=== PATIENT | female | born 1935 | race Caucasian/White ===

== ENCOUNTER 2023-12-08 13:50 | Inpatient (IN) | payer MEDICARE, SELFPAY ==
[2023-12-08] VITALS (10 sets, daily range): BP systolic 107–124; BP diastolic 60–87; PULSE 78–91; RESP 14–29; TEMP 36.5; O2SAT 90–100
--- NOTE | ~2023-12-08 | XR_ITS ---
Portable chest x-ray Comparison: 12/08/2023 Clinical History: Pneumonia Findings: NG tube is in satisfactory position. Small right pleural effusion is present. There is pro bable right basilar atelectasis. There is mild haziness left lung base. Cardiomediastinal silhouette is stable. Bones and soft tissues are unremarkable. Impression: Small right pleural effusion with probable bibasilar pulmonary edema/atelectasis, right worse than le ft. Correlate clinically for pneumonia. NG tube in place. Reviewed, dictated and finalized at location . ORMANCE TESTER Impression: Small right pleural effusion with probable bibasilar pulmonary edema/atelectasi s, right worse than left. Correlate clinically for pneumonia. NG tube in place.
--- NOTE | ~2023-12-08 | XR_ITS ---
EXAMINATION: XR UGI water soluble wo kub DATE: 12/12/2023 09:29 INDICATION: Perforated duodenal ulcer. TECHNIQUE: Water-soluble contrast was injected into the nasogastric tube. Fluoroscopy of the esophagu s, stomach, and proximal small bowel was performed. Fluoroscopy exposure time was 0.5 minutes. The to marissa number of images was 142. Total dose-area product was 1.387 Gy-cm^2. COMPARISON: CT abdomen and pelvis 12/09/2023 FINDINGS: The nasogastric tube tip is in the stomach. The stomach and duodenum are normal. There is n o extraluminal leakage of contrast. IMPRESSION: 1. No extraluminal leakage of contrast. Reviewed, dictated and finalized at location A. RAL INTERNIST
--- NOTE | ~2023-12-08 | XR_ITS ---
EXAMINATION: XR chest 1V portable DATE: 12/08/2023 20:52 INDICATION: Failure to thrive. TECHNIQUE: A single frontal view of the chest was obtained. COMPARISON: CT abdomen and pelvis 12/08/2023 FINDINGS: There is mild scarring at left lung apex. There are airspace opacities in right lower lung zone, consistent with pneumonia. There is mild atelectasis in left lower lobe. No pleural effusion or pneumothorax. Cardiomegaly is noted. There are old healed left rib fractures. IMPRESSION: 1. Airspace opacities in right lower lung zone, consistent with pneumonia. 2. Cardiomegaly. Reviewed, dictated and finalized at location E. ENT PUMPER
--- NOTE | ~2023-12-08 | CT_ITS ---
EXAMINATION: CT abdomen pelvis wo con DATE: 12/09/2023 14:44 INDICATION: Sudden abdominal pain. TECHNIQUE: Computed tomography (CT) of the abdomen and pelvis was performed without intravenous contr ast. Automated exposure control and iterative reconstruction technique were employed. The dose-length product was 405.10 mGy-cm. COMPARISON: CT abdomen and pelvis 12/08/2023., Ultrasound kidneys 12/09/2023 FINDINGS: The visualized portions of the lung bases demonstrate airspace opacities and centrilobular nodules and tree-in-bud opacities in right lower lobe and airspace opacities in right lower lobe, con sistent with pneumonia. There is mucous plugging in right lower lobe and right middle lobe and left l ower lobe. There is bronchiectasis in the inferior lungs. Calcified right lung nodules and calcified right hilar lymph nodes are consistent with old granulomatous disease. Cardiomegaly is noted. There a re coronary artery calcifications. No pericardial effusion. The central pulmonary arteries are enlarg ed, consistent with pulmonary arterial hypertension. Calcifications in the liver and spleen are consi stent with old granulomatous disease. The gallbladder is distended. The pancreas and right adrenal gl and are normal. There is thickening of left adrenal gland, likely benign. There are cysts in the kidn eys measuring up to 2.6 cm on the right. There are subcentimeter hemorrhagic cysts in left kidney. Th ere is calcified atherosclerosis of the aorta and many of the other arteries. There is acute hematoma in right iliacus muscle. There are scattered diverticula in the colon. There are no dilated loops of bowel. The appendix is not visualized. There is free intraperitoneal gas in the anterior abdomen. Th ere is a small volume of perihepatic ascites. There are no pathologically enlarged lymph nodes. IMPRESSION: 1. New free intraperitoneal gas, consistent with perforated viscus. I called this result to Mendel Thompson. 2. Small volume of ascites. 3. Acute hematoma in the right iliacus muscle. 4. Pneumonia involving right lower lobe and right middle lobe. 5. Gallbladder distention, which may be secondary to fasting. Reviewed, dictated and finalized at location E. OMS BROKERAGE AGENT IMPRESSION: 1. New free intraperitoneal gas, consistent with perforated viscus. I called th is result to Mendel Gonzalez. 2. Small volume of ascites. 3. Acute hematoma in the right iliacus muscle. 4. Pneumonia involving right lower lobe and right middle lobe. 5. Gallbladder distention, which may be secondary to fasting.
--- NOTE | ~2023-12-08 | CT_ITS ---
EXAMINATION: CT brain wo con DATE: 12/08/2023 21:00 INDICATION: Mental status change. TECHNIQUE: Computed tomography (CT) of the head was performed without intravenous contrast. The mA wa s adjusted according to patient size. Iterative reconstruction technique was employed. The dose-lengt h product was 983.67 mGy-cm. COMPARISON: None FINDINGS: There are scattered areas of low attenuation in the cerebral white matter, which is within normal limits for the patient's age. There is no intracranial hemorrhage, acute infarction, or abnor mal intracranial mass lesion. The ventricles are normal in size. There is mucosal thickening in the p aranasal sinuses. The orbits are normal. The mastoid air cells are normal. IMPRESSION: 1. Normal aging brain. Reviewed, dictated and finalized at location E. KEEPER IMPRESSION: 1. Normal aging brain.
--- NOTE | ~2023-12-08 | XR_ITS ---
EXAMINATION: XR abdomen gastric tube insert DATE: 12/09/2023 19:09 INDICATION: Nasogastric tube placement. TECHNIQUE: A semiupright view of the abdomen was obtained. COMPARISON: None. FINDINGS: The lower abdomen is excluded. The nasogastric tube tip is in the stomach with proximal lionel e port at the gastroesophageal junction. There is a surgical drain in the abdomen. There is a small r ight pleural effusion. There are old healed left rib fractures. IMPRESSION: 1. Nasogastric tube tip in the stomach with proximal side port at the gastroesophageal junction. 2. Small right pleural effusion. Reviewed, dictated and finalized at location E. ERSHIP MANAGER IMPRESSION: 1. Nasogastric tube tip in the stomach with proximal side port at the gastroeso phageal junction. 2. Small right pleural effusion.
--- NOTE | ~2023-12-08 | US_ITS ---
EXAMINATION: US renal BI DATE: 12/09/2023 14:44 INDICATION: Acute kidney injury. TECHNIQUE: Multiple ultrasound grayscale images of the kidneys were obtained. COMPARISON: CT abdomen pelvis 12/09/2023 FINDINGS: The right kidney measures 9.0 x 4.8 x 4.4 cm. The left kidney measures 9.1 x 4.2 x 3.7 cm. The kidney s demonstrate normal parenchymal echogenicity. There are cysts in the kidneys measuring up to 3.3 cm on the right. There is no hydronephrosis. The bladder is normal. IMPRESSION: 1. Normal kidney sizes. No hydronephrosis. Reviewed, dictated and finalized at location E. RMATION ASSURANCE ENGINEER
--- NOTE | ~2023-12-08 | CT_ITS ---
EXAMINATION: CT abdomen pelvis wo con DATE: 12/08/2023 21:00 INDICATION: Diarrhea. TECHNIQUE: Computed tomography (CT) of the abdomen and pelvis was performed without intravenous contr ast. Automated exposure control and iterative reconstruction technique were employed. The dose-length product was 347.97 mGy-cm. COMPARISON: None. FINDINGS: The visualized portions of the lung bases demonstrate centrilobular nodules and airspace op acities in right lower lobe, consistent with pneumonia. There is mild atelectasis bilaterally. No ple ural effusion. Cardiomegaly is noted. No pericardial effusion. There are coronary artery calcificatio ns. A calcification in the liver is consistent with old granulomatous disease. The gallbladder, splee n, pancreas, and adrenal glands are normal. There is cortical thinning of the kidneys. There is a 2.4 cm cyst in right kidney. There are masses in the kidneys measuring soft tissue attenuation measuring up to 10 mm on the left. There is no urolithiasis. There is diverticulosis of the colon without evid ence of diverticulitis. There are no dilated loops of bowel. The appendix is not visualized. There is calcified atherosclerosis of the aorta and many of the other arteries. There are no pathologically e nlarged lymph nodes. There is no free intraperitoneal fluid. There is moderate lumbar spondylosis. IMPRESSION: 1. Right lower lobe pneumonia. 2. Masses in the kidneys measuring up to 10 mm on the left, which may be hemorrhagic cysts or less li anna neoplasm(s). Abdomen MRI without and with contrast is recommended in 6 months. Reviewed, dictated and finalized at location E. ESSING MANAGER IMPRESSION: 1. Right lower lobe pneumonia. 2. Masses in the kidneys measuring up to 10 mm on the left, which may be hemorr hagic cysts or less likely neoplasm(s). Abdomen MRI without and with contrast i s recommended in 6 months.
--- NOTE | 2023-12-08 19:48 | ECG_ITS ---
Measurements Intervals [place] Rate: 68 P: [place]: 0 QRS: 7 QRSD: 87 T: -9 QT: 373 QTc: 398 Interpretive Statements ATRIAL FIBRILLATION ST DEVIATION AND MODERATE T-WAVE ABNORMALITY, CONSIDER LATERAL ISCHEMIA [-0.1+ mV T- WAVE IN I/aVL/V5/V6] ABNORMAL ECG NO PREVIOUS ECG AVAILABLE FOR COMPARISON Electronically Signed On 12-09-2023 7:13:58 SENIOR ELECTRICAL ENGINEER by Duane Coughlin M.D.
[2023-12-08 20:19] LABS: Basophils Absolute Auto 0.1 K/mm3 (0.0-0.1); Basophils Percent Auto 0.3 % (0.2-1.2); Hematocrit 50.4 % (37.0-47.0); Hemoglobin 15.8 g/dL (12.0-15.0); Immature Granulocyte Absolute 0.37 K/mm3 (0.00-0.031); Immature Granulocyte Percent A 1.5 % (0-0.5); Lymphocytes Absolute Auto 1.39 K/mm3 (0.9-3.2); Lymphocytes Percent Auto 5.6 % (18.3-44.2); Mean Corpuscular HGB Conc 31.3 g/dl (32-36); Mean Corpuscular Hemoglobin 31.1 pg (26-34); Mean Corpuscular Volume 99.2 fl (80-100); Mean Platelet Volume 12.5 fl (7.4-10.4); Monocytes Absolute Auto 1.3 K/mm3 (0.1-0.6); Monocytes Percent Auto 5.1 % (2.6-8.5); Neutrophils Absolute Auto 21.8 K/mm3 (1.3-6.7); Neutrophils Percent Auto 87.5 % (45.5-73.1); Platelet Count Result 129 k/mm3 (150-375); Red Blood Count 5.08 M/mm3 (4.2-5.4); White Blood Count 24.9 K/mm3 (4.5-10.0)
[2023-12-08 20:30] LABS: Alanine Aminotransferase 128 U/L (6-35); Albumin Level 3.9 g/dL (3.5-5.1); Alkaline Phosphatase 218 U/L (38-126); Anion Gap 13 mmol/L (8-16); Aspartate Amino Transferase 113 U/L (14-36); Bilirubin,Total 1.3 mg/dL (0.2-1.3); Blood Urea Nitrogen 44 mg/dL (7-17); Calcium 9.4 mg/dL (8.4-10.2); Carbon Dioxide 21 mmol/L (22-30); Chloride 97 mmol/L (98-107); Estimated Glomerular Filt Rate 28; Glucose 145 mg/dL (65-110); Potassium 4.9 mmol/L (3.4-5.0); Sodium 131 mmol/L (137-145)
[2023-12-08 20:38] LABS: NT Pro B Type Natriuretic Pept 5680 pg/mL (19.9-100)
[2023-12-08 21:25] LABS: Magnesium 2.5 mg/dL (1.6-2.3)
--- NOTE | 2023-12-08 21:27 | ED.GENADULT ---
HPI - General Adult General Chief complaint: Unspecified Stated complaint: unable to care for self Time Seen by Provider: 12/08/23 20:14 History of Present Illness HPI narrative: Patient 88-year-old female who presents emergency department with chief complaint of generalized weakness. Patient was recently hospitalized at [facility] for congestive heart failure exacerbation the patient was discharged home and since then has been having generalized weakness not able to get up off of the couch. The patient has developed some pressure ulcers in her left leg and in her gluteal area. The patient reports she has continued to have shortness of breath with ambulation. Related Data Home Medications Medication Instructions Recorded Confirmed aspirin 81 mg tablet,delayed mg 12/08/23 release atenolol 100 mg tablet mg 12/08/23 atorvastatin 80 mg tablet 80 mg PO DAILY 12/08/23 diltiazem HCl 240 mg capsule,24 240 mg PO DAILY 12/08/23 hr,extended release fluticasone fur. 100 mcg-umeclid inhalation 12/08/23 62.5 mcg-vilant 25 mcg inhalat.powder (Trelegy Ellipta) furosemide 40 mg tablet mg 12/08/23 magnesium oxide 400 mg (241.3 mg mg 12/08/23 magnesium) tablet metoprolol tartrate 50 mg tablet mg 12/08/23 potassium chloride 20 mEq meq PO 12/08/23 tablet,extended release prednisone 20 mg tablet mg 12/08/23 Allergies Allergy/AdvReac Type Severity Reaction Status Date / Time No Known Allergies Allergy Verified 12/08/23 21:12 Review of Systems Review of Systems: A 10 system review of systems was completed on the patient and is negative except for what is stated in the HPI. Nursing and ancillary documentation was reviewed. [facility] Social History Social History Second hand tobacco smoke exposure: No Smoking end date: 10/31/10 Alcohol intake: never Exam Narrative: GENERAL: Well-appearing, well-nourished, and in no acute distress. HEAD: Normocephalic, atraumatic. EYES: PERRLA and EOMI. ENT: Nares clear, no rhinorrhea or epistaxis. Mucous membranes moist. NECK: Supple. CHEST: Clear to auscultation. No respiratory distress. HEART: Regular rate and rhythm. No murmur heard. Normal peripheral pulses. ABDOMEN: Soft, nontender, nondistended, normal active bowel sounds. EXTREMITIES: Normal range of motion. No edema. SKIN: Warm, dry, no rash. Small areas of skin breakdown on the left posterior thigh and the right gluteal region NEURO: No focal deficits. Alert and oriented x3. PSYCH: Normal mood and affect. Course Vital Signs Vital signs: Vital Signs Temperature 36.5 C 12/08/23 14:37 Pulse Rate 85 12/08/23 14:37 Respiratory Rate 18 12/08/23 14:37 Blood Pressure 124/71 12/08/23 14:37 Pulse Oximetry 98 12/08/23 14:37 Oxygen Delivery Room Air 12/08/23 14:37 Temperature 36.5 C 12/08/23 14:37 Pulse Rate 85 12/08/23 14:37 Respiratory Rate 18 12/08/23 14:37 Blood Pressure 124/71 12/08/23 14:37 Pulse Oximetry 98 12/08/23 14:37 Oxygen Delivery Room Air 12/08/23 14:37 Medical Decision Making [facility] Narrative Medical decision making narrative: Differential diagnosis includes ACS, dehydration, and electrolyte abnormality, pneumonia, CHF exacerbation, UTI Laboratory studies were obtained on the patient which showed a white blood cell count of 24.9 electrolytes showed a sodium of 131 creatinine was 1.7 magnesium was 2.5 liver enzymes were slightly elevated troponin is 0.032 BNP is 5680 chest x-ray showed a right lower lobe infiltrate CT scan of the abdomen pelvis showed a right lower lobe infiltrate no acute findings in the abdomen. CT head showed no acute abnormality Blood cultures were obtained on the patient the patient started on Rocephin and Zithromax Vital Signs Vital Signs: Vital Signs Temperature 36.5 C 12/08/23 14:37 Pulse Rate 85 12/08/23 14:37 Respiratory Rate 18 02/0
[2023-12-08 21:34] LABS: Troponin I 0.032 ng/mL (0.000-0.034)
--- NOTE | 2023-12-08 21:46 | PM.IMHP ---
H&P: HPI History of Present Illness Date/Time: 12/08/23 21:46 Chief Complaint: GENERALIZED WEAKNESS Narrative: This is an 88-year-old female with past medical history significant for atrial fibrillation, congestive heart failure, chronic kidney disease. Patient presents to the emergency room due to generalized weakness patient is unable to give much meaningful history contributory to history of present illness. Had been admitted recently discharged from [facility]. Preliminary workup here was significant for chest x-ray showed pneumonia in the right lower lobe. Patient has been admitted for further evaluation management and treatment. EXAMINATION: XR chest 1V portable DATE: 12/08/2023 20:52 INDICATION: Failure to thrive. TECHNIQUE: A single frontal view of the chest was obtained. COMPARISON: CT abdomen and pelvis 12/08/2023 FINDINGS: There is mild scarring at left lung apex. There are airspace opacities in right lower lung zone, consistent with pneumonia. There is mild atelectasis in left lower lobe. No pleural effusion or pneumothorax. Cardiomegaly is noted. There are old healed left rib fractures. IMPRESSION: 1. Airspace opacities in right lower lung zone, consistent with pneumonia. 2. Cardiomegaly. EXAMINATION: CT brain wo con DATE: 12/08/2023 21:00 INDICATION: Mental status change. TECHNIQUE: Computed tomography (CT) of the head was performed without intravenous contrast. The mA was adjusted according to patient size. Iterative reconstruction technique was employed. The dose-length product was 983.67 mGy-cm. COMPARISON: None FINDINGS: There are scattered areas of low attenuation in the cerebral white matter, which is within normal limits for the patient's age.? There is no intracranial hemorrhage, acute infarction, or abnormal intracranial mass lesion. The ventricles are normal in size. There is mucosal thickening in the paranasal sinuses. The orbits are normal. The mastoid air cells are normal. IMPRESSION: 1. Normal aging brain. EXAMINATION: CT abdomen pelvis wo con DATE: 12/08/2023 21:00 INDICATION: Diarrhea. TECHNIQUE: Computed tomography (CT) of the abdomen and pelvis was performed without intravenous contrast. Automated exposure control and iterative reconstruction technique were employed. The dose-length product was 347.97 mGy-cm. COMPARISON: None. FINDINGS: The visualized portions of the lung bases demonstrate centrilobular nodules and airspace opacities in right lower lobe, consistent with pneumonia. There is mild atelectasis bilaterally. No pleural effusion. Cardiomegaly is noted. No pericardial effusion. There are coronary artery calcifications. A calcification in the liver is consistent with old granulomatous disease. The gallbladder, spleen, pancreas, and adrenal glands are normal. There is cortical thinning of the kidneys. There is a 2.4 cm cyst in right kidney. There are masses in the kidneys measuring soft tissue attenuation measuring up to 10 mm on the left. There is no urolithiasis. There is diverticulosis of the colon without evidence of diverticulitis. There are no dilated loops of bowel. The appendix is not visualized. There is calcified atherosclerosis of the aorta and many of the other arteries. There are no pathologically enlarged lymph nodes. There is no free intraperitoneal fluid. There is moderate lumbar spondylosis. IMPRESSION: 1. Right lower lobe pneumonia. 2. Masses in the kidneys measuring up to 10 mm on the left, which may be hemorrhagic cysts or less likely neoplasm(s). Abdomen MRI without and with contrast is recommended in 6 months. Review of Systems Review of Systems: Generalized weakness, wounds bilateral lower extremity [facility] Social History Social History Smoking status: Former smoker Second hand tobacco smoke exposure: No Smoking end date: 10/31/10 Alcohol intake: former Substance
--- NOTE | 2023-12-08 22:17 | PC.NURSE ---
RN, Tech, Phlebotomy all attempted to collect blood cultures. Able to obtain only 1 set of blood cultures at this time.
[2023-12-08 22:29] LABS: Lactic Acid Reflex 3.9 mmol/L (0.7-2.0)
[2023-12-08 22:34] LABS: Partial Thromboplastin Time 21.9 SECONDS (22.3-36.8); Prothrombin Time 13.4 Seconds (11.1-14.7)
--- NOTE | 2023-12-08 22:44 | PC.NURSE ---
second set of blood cultures obtained by kayden donnelly rn .
[2023-12-08] MEDS: AZITHROMYCIN 500 MG/NS 250 ML 500 MG/250 ML BAG 250 MG IVPB (22:45)
[2023-12-08 22:46] LABS: Procalcitonin 0.4 ng/mL
[2023-12-08 23:26] LABS: Influenza A QL RT-PCR Negative (Negative); Influenza B QL RT-PCR Negative (Negative); RSV RNA, RT-PCR Negative (Negative); SARS-CoV-2 RNA PCR Negative (Negative)
[2023-12-09] VITALS (26 sets, daily range): BP systolic 93–156; BP diastolic 48–89; PULSE 72–112; RESP 13–22; TEMP 36.4–36.9; O2SAT 92–100; BMI 20.7; BMI 19.5
--- NOTE | 2023-12-09 00:03 | ADMGEN ---
This patient, Leslee Mota, was admitted to Medical Room 343-01. Patient/family oriented to hospital policies and general routines including ID bracelet, bed and alarms, visiting hours, pain management, procedures, bathroom and other care routines, personal items, smoking policy, room service/diet, and visiting hours. Information on how to activate the Rapid Response Team has been discussed. Patient/Family are encouraged to report perceived risks to care and to ask questions if they do not understand what they are told or what they should do.
[2023-12-09 01:15] LABS: Reflex Lactic Acid Yes or No Add Lactic
--- NOTE | 2023-12-09 02:05 | PC.NURSE ---
RECEIVED REPORT FROM LAB STATING THAT BLOOD RECENTLY DRAWN WAS HEMOLYZED. CALLED ELECTRICAL SOLDERER TO HAVE LABS REDRAWN.
[2023-12-09 02:20] LABS: Lactic Acid 2.7 mmol/L (0.7-2.0)
[2023-12-09] MEDS: IPRATROPIUM 0.5 MG/ALBUTEROL SULFATE 2.5 MG AMPUL.NEB 3 ML INHALATION ×3 (02:30→20:37)
[2023-12-09] MEDS: FLUTICASONE/UMECLIDIN/VILANTER 100-62.5-25 MCG ELLIPTA 1 PUFF INHALATION (07:33)
[2023-12-09 08:20] LABS: Basophils Absolute Auto 0.1 K/mm3 (0.0-0.1); Basophils Percent Auto 0.2 % (0.2-1.2); Hematocrit 45.2 % (37.0-47.0); Hemoglobin 14.5 g/dL (12.0-15.0); Immature Granulocyte Absolute 0.28 K/mm3 (0.00-0.031); Immature Granulocyte Percent A 0.9 % (0-0.5); Lymphocytes Percent Auto 6.9 % (18.3-44.2); Mean Corpuscular HGB Conc 32.1 g/dl (32-36); Mean Corpuscular Hemoglobin 31.1 pg (26-34); Mean Platelet Volume 12.4 fl (7.4-10.4); Monocytes Absolute Auto 1.6 K/mm3 (0.1-0.6); Monocytes Percent Auto 5.4 % (2.6-8.5); Neutrophils Absolute Auto 26.4 K/mm3 (1.3-6.7); Neutrophils Percent Auto 86.6 % (45.5-73.1); Platelet Count Result 112 k/mm3 (150-375); Red Blood Count 4.66 M/mm3 (4.2-5.4); White Blood Count 30.5 K/mm3 (4.5-10.0)
[2023-12-09 08:44] LABS: Lactic Acid Reflex 1.2 mmol/L (0.7-2.0)
[2023-12-09 08:46] LABS: Alanine Aminotransferase 94 U/L (6-35); Alkaline Phosphatase 207 U/L (38-126); Anion Gap 8 mmol/L (8-16); Aspartate Amino Transferase 71 U/L (14-36); Bilirubin,Total 1.1 mg/dL (0.2-1.3); Blood Urea Nitrogen 49 mg/dL (7-17); Calcium 8.6 mg/dL (8.4-10.2); Carbon Dioxide 24 mmol/L (22-30); Chloride 101 mmol/L (98-107); Estimated CRCL calculation 18 ml/min; Estimated Glomerular Filt Rate 28; Glucose 108 mg/dL (65-110); Potassium 4.5 mmol/L (3.4-5.0); Sodium 133 mmol/L (137-145)
[2023-12-09] MEDS: PRAVASTATIN SODIUM 20 MG TABLET 80 MG PO (08:55)
[2023-12-09] MEDS: METOPROLOL TARTRATE 50 MG TAB PO (08:55)
[2023-12-09] MEDS: MAGNESIUM OXIDE 400 MG TABLET PO (08:55)
[2023-12-09] MEDS: ASPIRIN 81 MG ENTERIC TABLET PO (08:55)
[2023-12-09] MEDS: CEFEPIME 1 GM/NS 50 ML 1 GM/50 ML BAG IVPB ×2 (08:55→21:08)
[2023-12-09] MEDS: dilTIAZem HCL CD 240 MG CAP.24HR PO (08:56)
--- NOTE | 2023-12-09 09:50 | P.PNIM_ITS ---
Progress Note: A&P Assessment and Plan (1) Sepsis: Code(s): A41.9 - Sepsis, unspecified organism Status: Acute Assessment and Plan: * Patient presented meeting sepsis criteria with leukocytosis, lactic acidosis, unknown source of infection and tachycardia. * Patient started on broad-spectrum antibiotics of Rocephin and azithromycin ED in given IV fluids. * Lactic acid has trended downward to 1.2. * Patient not meeting shock criteria. * Antibiotic therapy will be brought and from Rocephin to cefepime to cover for Pseudomonas infection. * As patient has pneumonia will check Legionella as well as strep Pneumo from urine * Provide supportive care with supplemental oxygenation. * Wean oxygen as tolerated. * Trend daily labs and vital signs. * Continue DuoNebs q.6 hours * Patient is full code. (2) Right lower lobe pneumonia: Code(s): J18.9 - Pneumonia, unspecified organism Status: Acute Assessment and Plan: * Cause of sepsis. Unknown bacterial agent. * Antibiotic therapy expanded from Rocephin to cefepime to cover for possible pseudomonal causation. * See plan for 1. (3) Weakness generalized: Code(s): R53.1 - Weakness Status: Acute Assessment and Plan: * Secondary to problems 1 And 2. * PT OT evaluation. * Fall precautions (4) Leukocytosis: Code(s): D72.829 - Elevated white blood cell count, unspecified Status: Acute Assessment and Plan: * Interval increase and leukocytosis to 30,000. * Etiology sepsis and community-acquired pneumonia. * Antibiotic therapy has been broadened from Rocephin to cefepime. * Continue treatments for problems 1. And 2. * Trend labs (5) Thrombocytopenia: Code(s): D69.6 - Thrombocytopenia, unspecified Status: Acute Assessment and Plan: * Platelets today at 112 K. * Monitor for any signs or symptoms of bleeding. * SCDs for DVT prophylaxis. * Continue to monitor trend (6) GERARDO (acute kidney injury): Code(s): N17.9 - Acute kidney failure, unspecified Status: Acute Assessment and Plan: * Unknown baseline. * Creatinine is consistently at 1.7. * Start gentle IVF 2/2 hx of Heart failure, at NS at 75 ml/hr and monitor for any s/s of volume overload. CXR without any signs of overload and pt appears euvolemic on PE. * Monitor and trend labs (7) Skin breakdown: Code(s): R23.8 - Other skin changes Status: Acute Assessment and Plan: * Left posterior thigh and right gluteal region. * Small, partial thickness * Encourage offloading of weight and turning every so often. * Barrier cream to be applied to affected areas. * Wound consult is pending. Time Spent With Patient Time with patient: 25 - 35 minutes Subjective Date/time seen: 12/09/23 09:50 Interval history: This patient is examined at the bedside today in interval assessment being admitted to hospital for generalized weakness with findings lower lobe pneumonia. Patient is alert, oriented and sitting up in bed time my entry into the room. She appears overall well. She does dyspnea that she recently was discharged from [facility] after having fluid around lungs. She says she never better after returning home in that her symptoms became worse past couple of days causing her to present to the emergency room last evening. In the emergency room last evening she was found have right lower pneumonia, was started on IV antibiotics and admitted for further evaluation and management. Patient is requiring supplemental oxygen with her baseline being room
--- NOTE | 2023-12-09 09:50 | PM.IMPN ---
Progress Note: A&P Assessment and Plan (1) Sepsis: Code(s): A41.9 - Sepsis, unspecified organism Status: Acute Assessment and Plan: Patient presented meeting sepsis criteria with leukocytosis, lactic acidosis, unknown source of infection and tachycardia. Patient started on broad-spectrum antibiotics of Rocephin and azithromycin ED in given IV fluids. Lactic acid has trended downward to 1.2. Patient not meeting shock criteria. Antibiotic therapy will be brought and from Rocephin to cefepime to cover for Pseudomonas infection. As patient has pneumonia will check Legionella as well as strep Pneumo from urine Provide supportive care with supplemental oxygenation. Wean oxygen as tolerated. Trend daily labs and vital signs. Continue DuoNebs q.6 hours Patient is full code. (2) Right lower lobe pneumonia: Code(s): J18.9 - Pneumonia, unspecified organism Status: Acute Assessment and Plan: Cause of sepsis. Unknown bacterial agent. Antibiotic therapy expanded from Rocephin to cefepime to cover for possible pseudomonal causation. See plan for 1. (3) Weakness generalized: Code(s): R53.1 - Weakness Status: Acute Assessment and Plan: Secondary to problems 1 And 2. PT OT evaluation. Fall precautions (4) Leukocytosis: Code(s): D72.829 - Elevated white blood cell count, unspecified Status: Acute Assessment and Plan: Interval increase and leukocytosis to 30,000. Etiology sepsis and community-acquired pneumonia. Antibiotic therapy has been broadened from Rocephin to cefepime. Continue treatments for problems 1. And 2. Trend labs (5) Thrombocytopenia: Code(s): D69.6 - Thrombocytopenia, unspecified Status: Acute Assessment and Plan: Platelets today at 112 K. Monitor for any signs or symptoms of bleeding. SCDs for DVT prophylaxis. Continue to monitor trend (6) GERARDO (acute kidney injury): Code(s): N17.9 - Acute kidney failure, unspecified Status: Acute Assessment and Plan: Unknown baseline. Creatinine is consistently at 1.7. Start gentle IVF 2/2 hx of Heart failure, at NS at 75 ml/hr and monitor for any s/s of volume overload. CXR without any signs of overload and pt appears euvolemic on PE. Monitor and trend labs (7) Skin breakdown: Code(s): R23.8 - Other skin changes Status: Acute Assessment and Plan: Left posterior thigh and right gluteal region. Small, partial thickness Encourage offloading of weight and turning every so often. Barrier cream to be applied to affected areas. Wound consult is pending. Time Spent With Patient Time with patient: 25 - 35 minutes Subjective Date/time seen: 12/09/23 09:50 Interval history: This patient is examined at the bedside today in interval assessment being admitted to hospital for generalized weakness with findings lower lobe pneumonia. Patient is alert, oriented and sitting up in bed time my entry into the room. She appears overall well. She does dyspnea that she recently was discharged from [facility] after having fluid around lungs. She says she never better after returning home in that her symptoms became worse past couple of days causing her to present to the emergency room last evening. In the emergency room last evening she was found have right lower pneumonia, was started on IV antibiotics and admitted for further evaluation and management. Patient is requiring supplemental oxygen with her baseline being room air. She endorses a dry cough productivity states she is easily winded any exertion she denies any chest pain nausea, vomiting, diarrhea and has not been febrile. Review of Systems Review of Systems: All systems reviewed & are unremarkable except as noted in HPI and below Exam Narrative: CONSTITUTIONAL: Pleasant, elderly female patient in bed at this time in no acute distress. She is easily compressible h
[2023-12-09] MEDS: SODIUM CHLORIDE 0.9% IV 1,000 ML 75 ML IV CONT ×2 (11:41→21:03)
[2023-12-09] MEDS: ACETAMINOPHEN 325 MG TABLET 650 MG PO (12:28)
[2023-12-09] MEDS: MORPHINE SULFATE (*CRX) 2 MG/ML INJ IV PUSH (13:24)
--- NOTE | 2023-12-09 16:09 | WPDHPUPDATE1 ---
History and Physical Update Update Date/Time: 12/09/23 16:09 History and Physical has been reviewed, including an updated exam of the patient. There are NO changes in the patient's condition. Risks, benefits, and alternatives have been discussed and questions answered. Patient agrees to proceed with procedure.
--- NOTE | 2023-12-09 16:09 | PM.CNGS ---
Assessment and Plan Assessment and plan (1) Perforated viscus: Code(s): R19.8 - Other specified symptoms and signs involving the digestive system and abdomen Status: Acute Assessment and Plan: I reviewed the CT and discussed the findings with the patient. She has signs of perforated viscus which I explained her could be coming from anywhere in her GI tract. Where the free air is located, it seems more likely that this is related to a perforated gastric or duodenal ulcer. I also discussed that perforated small bowel or colon is also possible. I have discussed urgent need for surgical intervention to prevent this from becoming worse. I recommended proceeding with diagnostic laparoscopy, possible open, possible bowel resection. I discussed that if in ulcer is identified I could possibly repair this laparoscopically and place drains. Also discussed that if it perforation is identified in her bowel there is a possibility of requiring resection and even potential ostomy. I also discussed that given her current sepsis and comorbidities, there could be a long difficult recovery from a surgery like this. Patient is already on Zithromax and cefepime. Will also add metronidazole to broaden enteric organism coverage. I have discussed the procedure, risks, benefits, and alternatives. Questions were answered. I also discussed that ICU stay as a possibility postoperatively. (2) Sepsis: Code(s): A41.9 - Sepsis, unspecified organism Status: Acute (3) GERARDO (acute kidney injury): Code(s): N17.9 - Acute kidney failure, unspecified Status: Acute (4) Thrombocytopenia: Code(s): D69.6 - Thrombocytopenia, unspecified Status: Acute (5) Right lower lobe pneumonia: Code(s): J18.9 - Pneumonia, unspecified organism Status: Acute History of Present Illness Consult details Consult date: 12/09/23 Reason for consult: other (Perforated viscus) Requesting physician: Mendel Gonzalez, MARCIA Narrative: This is an 88-year-old woman who I am asked to see urgently for a new finding of perforated viscus on CT. She was admitted yesterday with signs of sepsis and pneumonia. A CT abdomen and pelvis was done at that time which showed no evidence ulcer or perforation or free air. She was noted to have a worsening leukocytosis today. She was complaining of some abdominal pain. Repeat CT abdomen and pelvis was performed this afternoon. Findings showed evidence of new free intraperitoneal gas consistent with perforated viscus. She is still hemodynamically stable at this time. She is having some abdominal pain but does not feel like it is severe. Patient does have a history of acid reflux and heartburn and takes Tums frequently. She denies any NSAID use and denies any alcohol or tobacco use. Review of Systems Review of Systems: All systems reviewed & are unremarkable except as noted in HPI and below Constitutional: Constitutional: Denies chills and Denies fever(s) Eyes: Eyes: Denies change in vision ENT: Denies hearing loss, Denies neck pain and Denies sore throat Cardiovascular: Cardiovascular: Denies chest pain and Denies dyspnea Respiratory: Respiratory: Denies cough, Denies dyspnea and Denies wheezing Gastrointestinal: Gastrointestinal: Reports as per HPI Genitourinary: Genitourinary: Denies hematuria and Denies dysuria Musculoskeletal: Musculoskeletal: Denies arthralgias, Denies joint swelling and Denies neck pain Allergic/Immunologic: Allergic/Immunologic: Denies wheezing [facility] Past Medical History Medical History (Updated 12/09/23 @ 16:15 by Garcia Singh DO) Sepsis Skin breakdown Surgical History Surgical History (Updated 12/09/23 @ 16:13 by Garcia Singh DO) History of hysterectomy Social History Social History Smoking status: Former smoker Second hand tobacco smoke exposure: No Smoking end date
--- NOTE | 2023-12-09 16:40 | WPDANESEPP ---
Anes - Eval Pre Procedure Procedure: Operation Date: 12/09/23 17:30 Proposed Procedures p Lap Repair of Gastric Ulcer - Garcia Singh DO Date/Time: 12/09/23 16:40 Surgeon: marguerite Preop Diagnosis: Gastric ulcer Pre Op Diagnosis: Rt Lower Lobe Pneumonia,Generalized Weakness Patient Data Age: 88 Gender: F Height: 1.68 m Weight: 54.8 kg Last Vital Signs Temp 98 F 12/09/23 14:00 Pulse 90 12/09/23 14:00 Resp 18 12/09/23 14:00 BP 105/76 12/09/23 14:00 Pulse Ox 92 12/09/23 14:00 O2 Del Method Nasal Cannula 12/09/23 08:25 O2 Flow Rate 1 12/09/23 08:25 Allergies Allergy/AdvReac Type Severity Reaction Status Date / Time lorazepam [From Ativan] AdvReac Agitated Verified 12/09/23 13:16 Home Medications Medication Instructions Recorded Confirmed Type aspirin 81 mg tablet,delayed 81 mg PO DAILY 12/08/23 12/08/23 History release diltiazem HCl 240 mg capsule,24 240 mg PO DAILY 12/08/23 12/09/23 History hr,extended release fluticasone fur. 100 mcg-umeclid 1 inh inhalation DAILY 12/08/23 12/08/23 History 62.5 mcg-vilant 25 mcg inhalat.powder (Trelegy Ellipta) furosemide 40 mg tablet 40 mg PO DAILY 12/08/23 12/08/23 History magnesium oxide 400 mg (241.3 mg 400 mg PO DAILY 12/08/23 12/08/23 History magnesium) tablet metoprolol tartrate 50 mg tablet 50 mg PO BID 12/08/23 12/08/23 History potassium chloride 20 mEq 20 meq PO BID 12/08/23 12/08/23 History tablet,extended release pravastatin 80 mg tablet 80 mg PO DAILY 12/08/23 12/08/23 History Laboratory Tests 12/08/23 12/08/23 12/08/23 20:04 20:04 21:53 WBC 24.9 H K/mm3 (4.5-10.0) RBC 5.08 M/mm3 (4.2-5.4) Hgb 15.8 H g/dL (12.0-15.0) Hct 50.4 H % (37.0-47.0) MCV 99.2 fl (80-100) MCH 31.1 pg (26-34) MCHC 31.3 L g/dl (32-36) RDW 15.0 H % (11.5-14.5) Plt Count 129 L k/mm3 (150-375) MPV 12.5 H fl (7.4-10.4) Immature Gran % (Auto) 1.5 H % (0-0.5) Neut % (Auto) 87.5 H % (45.5-73.1) Lymph % (Auto) 5.6 L % (18.3-44.2) [place] % (Auto) 5.1 % (2.6-8.5) Eos % (Auto) 0.0 % (0-4.4) Baso % (Auto) 0.3 % (0.2-1.2) Lymph # (Auto) 1.39 K/mm3 (0.9-3.2) [place] # (Auto) 1.3 H K/mm3 (0.1-0.6) Eos # (Auto) 0.0 K/mm3 (0-0.3) Baso # (Auto) 0.1 K/mm3 (0.0-0.1) Abs Immat Gran (auto) 0.37 H K/mm3 (0.00-0.031) Absolute Neuts (auto) 21.8 H K/mm3 (1.3-6.7) Absolute Nucleated RBC 0.0 K/mm3 (0.0-0.012) Nucleated RBC % 0.0 % (0.0-0.2) PT 13.4 Seconds (11.1-14.7) INR 1.0 APTT 21.9 L SECONDS (22.3-36.8) Sodium 131 L mmol/L (137-145) Potassium 4.9 mmol/L (3.4-5.0) Chloride 97 L mmol/L (98-107) Carbon Dioxide 21 L mmol/L (22-30) Anion Gap 13 mmol/L (8-16) BUN 44 H mg/dL (7-17) Creatinine 1.70 H mg/dL (0.7-1.0) Estim Creat Clear Calc Not Reportable Estimated GFR 28 L (59 - ) Glucose 145 H mg/dL (65-110) Lactic Acid 3.9 H mmol/L (0.7-2.0) Calcium 9.4 mg/dL (8.4-10.2) Magnesium 2.5 H mg/dL (1.6-2.3) Total Bilirubin 1.3 mg/dL (0.2-1.3) AST 113 H U/L (14-36) ALT 128 H U/L (6-35) Alkaline Phosphatase 218 H U/L (38-126) Troponin I 0.032 ng/mL (0.000-0.034) NT-Pro-B Natriuret Pep 5680 H pg/mL Cancelled (19.9-100) Total Protein 7.0 g/dL (6.3-8.2) Albumin 3.9 g/dL (3.5-5.1) Procalcitonin 0.4 ng/mL Influenza A (RT-PCR) Influenza B (RT-PCR) RSV (RT-PCR) SARS-CoV-2 RNA (RT-PCR) 12/08/23 12/09/23 12/09/23 22:44 01:44 08:14 WBC
--- NOTE | 2023-12-09 16:56 | WPDANESEPPF ---
Anes - Initial Pre Proc Eval Procedure: Operation Date: 12/09/23 17:30 Proposed Procedures p Lap Repair of Gastric Ulcer - Garcia Singh DO Date/Time: 12/09/23 16:56 Surgeon: SHEKHAR Mckeon Pre Op Diagnosis: Rt Lower Lobe Pneumonia,Generalized Weakness Patient Data Age: 88 Gender: F Height: 1.68 m Weight: 54.8 kg Last Vital Signs Temp 36.6 C 12/09/23 14:00 Pulse 90 12/09/23 14:00 Resp 18 12/09/23 14:00 BP 105/76 12/09/23 14:00 Pulse Ox 92 12/09/23 14:00 O2 Del Method Nasal Cannula 12/09/23 08:25 O2 Flow Rate 1 12/09/23 08:25 Allergies Allergy/AdvReac Type Severity Reaction Status Date / Time lorazepam [From Ativan] AdvReac Agitated Verified 12/09/23 13:16 Home Medications Medication Instructions Recorded Confirmed Type aspirin 81 mg tablet,delayed 81 mg PO DAILY 12/08/23 12/08/23 History release diltiazem HCl 240 mg capsule,24 240 mg PO DAILY 12/08/23 12/09/23 History hr,extended release fluticasone fur. 100 mcg-umeclid 1 inh inhalation DAILY 12/08/23 12/08/23 History 62.5 mcg-vilant 25 mcg inhalat.powder (Trelegy Ellipta) furosemide 40 mg tablet 40 mg PO DAILY 12/08/23 12/08/23 History magnesium oxide 400 mg (241.3 mg 400 mg PO DAILY 12/08/23 12/08/23 History magnesium) tablet metoprolol tartrate 50 mg tablet 50 mg PO BID 12/08/23 12/08/23 History potassium chloride 20 mEq 20 meq PO BID 12/08/23 12/08/23 History tablet,extended release pravastatin 80 mg tablet 80 mg PO DAILY 12/08/23 12/08/23 History Laboratory Tests 12/08/23 12/08/23 12/08/23 20:04 20:04 21:53 WBC 24.9 H K/mm3 (4.5-10.0) RBC 5.08 M/mm3 (4.2-5.4) Hgb 15.8 H g/dL (12.0-15.0) Hct 50.4 H % (37.0-47.0) MCV 99.2 fl (80-100) MCH 31.1 pg (26-34) MCHC 31.3 L g/dl (32-36) RDW 15.0 H % (11.5-14.5) Plt Count 129 L k/mm3 (150-375) MPV 12.5 H fl (7.4-10.4) Immature Gran % (Auto) 1.5 H % (0-0.5) Neut % (Auto) 87.5 H % (45.5-73.1) Lymph % (Auto) 5.6 L % (18.3-44.2) [place] % (Auto) 5.1 % (2.6-8.5) Eos % (Auto) 0.0 % (0-4.4) Baso % (Auto) 0.3 % (0.2-1.2) Lymph # (Auto) 1.39 K/mm3 (0.9-3.2) [place] # (Auto) 1.3 H K/mm3 (0.1-0.6) Eos # (Auto) 0.0 K/mm3 (0-0.3) Baso # (Auto) 0.1 K/mm3 (0.0-0.1) Abs Immat Gran (auto) 0.37 H K/mm3 (0.00-0.031) Absolute Neuts (auto) 21.8 H K/mm3 (1.3-6.7) Absolute Nucleated RBC 0.0 K/mm3 (0.0-0.012) Nucleated RBC % 0.0 % (0.0-0.2) PT 13.4 Seconds (11.1-14.7) INR 1.0 APTT 21.9 L SECONDS (22.3-36.8) Sodium 131 L mmol/L (137-145) Potassium 4.9 mmol/L (3.4-5.0) Chloride 97 L mmol/L (98-107) Carbon Dioxide 21 L mmol/L (22-30) Anion Gap 13 mmol/L (8-16) BUN 44 H mg/dL (7-17) Creatinine 1.70 H mg/dL (0.7-1.0) Estim Creat Clear Calc Not Reportable Estimated GFR 28 L (59 - ) Glucose 145 H mg/dL (65-110) Lactic Acid 3.9 H mmol/L (0.7-2.0) Calcium 9.4 mg/dL (8.4-10.2) Magnesium 2.5 H mg/dL (1.6-2.3) Total Bilirubin 1.3 mg/dL (0.2-1.3) AST 113 H U/L (14-36) ALT 128 H U/L (6-35) Alkaline Phosphatase 218 H U/L (38-126) Troponin I 0.032 ng/mL (0.000-0.034) NT-Pro-B Natriuret Pep 5680 H pg/mL Cancelled (19.9-100) Total Protein 7.0 g/dL (6.3-8.2) Albumin 3.9 g/dL (3.5-5.1) Procalcitonin 0.4 ng/mL Influenza A (RT-PCR) Influenza B (RT-PCR) RSV (RT-PCR) SARS-CoV-2 RNA (RT-PCR) 12/08/23 12/09/23 12/09/23 22:44 01:44 08:14 WBC 30.5 H K
[2023-12-09] MEDS: LACTATED RINGERS 1,000 ML 30 ML IV CONT ×2 (17:00→18:35)
--- NOTE | 2023-12-09 17:18 | PC.NURSE ---
Patient transferred to surgery unit
[2023-12-09] MEDS: BUPIVACAINE/EPINEPHRINE 0.5% 30 ML VIAL INFILTRATE (17:55)
--- NOTE | 2023-12-09 18:42 | W.PM.PROC2 ---
Procedure Note - Detailed Date of Procedure 12/09/23 Pre-op Diagnosis Perforated abdominal viscus Post-op Diagnosis Other (Perforated duodenal ulcer) Procedure Performed 1. Laparoscopic repair of perforated duodenal ulcer with omental Marc patch 2. Laparoscopic drainage of intra-abdominal abscess Surgeon Garcia Singh, Anesthesia General and Local (0.5% bupivacaine with epinephrine) Indications This is an 88-year-old woman who presented to the emergency department on 12/08/2023 with generalized weakness. She was found to have evidence of pneumonia and was admitted for further treatment. CT chest abdomen and pelvis had been performed in the emergency department. Today she was complaining of some increased abdominal pain and white blood count had risen. She was showing signs of sepsis and was not responding to initial treatment with antibiotics for pneumonia. A repeat CT was performed today which showed evidence of perforated abdominal viscus. A clear source of perforation was not identified but much of the free air appeared to be in the upper abdomen. Discussions were made with the patient about her treatment options and decision was made to proceed with diagnostic laparoscopy, possible open, possible bowel resection. Findings Diagnostic laparoscopy was performed. Patient was found to have evidence of a perforated duodenal ulcer just beyond the pylorus. There was some scant gastric contents identified up near the gallbladder and falciform ligament. After suctioning this area was able to identify the perforation the superior anterior portion of the duodenum. The perforation was repaired using 2 0 V lock simple interrupted sutures and then an omental Marc patch was performed using 2-0 silk sutures. There was some purulence fluid up in the hepatic recess and right lower quadrant. I irrigated the entire abdomen with about 2 L of sterile saline. I then placed a 19 round Nolan drain overlying the duodenum and stomach. Description of Procedure Procedure as well as risks, benefits, and alternatives were discussed with the patient. Written consent was obtained and placed in chart prior to procedure. Patient was brought back to surgical suite. She was placed supine on operating table. Time-out was done to confirm patient and procedure. She was then intubated by the anesthesia department. Her abdomen was prepped and draped in sterile fashion using chlorhexidine prep. 0.5% bupivacaine with epinephrine was infiltrated locally at each location for port placement. A 5 mm incision was made in the left upper quadrant and a 5 mm Optiview trocar was advanced under direct visualization into the abdominal cavity. Once inside the abdominal cavity carbon dioxide insufflation was used to create a pneumoperitoneum. The camera was inserted in the abdomen was inspected. The right upper quadrant appeared to have more signs of peritonitis with erythema along the abdominal wall. Patient was placed in slight reverse Trendelenburg position. A 5 mm incision was made just to the right of the umbilicus and a 5 mm trocar was advanced under direct visualization. Another 5 mm incision was made in the right lateral abdomen and a 5 mm trocar was inserted under direct visualization. An 11 mm incision was made in the right mid abdomen an 11 mm trocar was inserted under direct visualization. Then carefully inspected the anterior surface of the stomach and duodenum. Identified the perforation in the 1st portion of the duodenum just beyond the pylorus. The perforation appeared to be about 5-10 mm in size. There was some scant gastric contents draining from the perforation. A carefully suctioned any of the drainage and identified the edges of the perforation which appeared healthy and viable. I then repaired the perforation laparoscopically using 2-0 Vicryl simple interrupted sutures. Two sutures were placed to approximate the duodenal edges. I then identified an area of omentum
[2023-12-09] MEDS: PANTOPRAZOLE SODIUM IV 40 MG VIAL IV PUSH (21:06)
[2023-12-09 21:19] LABS: Appearance Urine Clear (Clear); Bacteria Urine None Seen /hpf; Bilirubin Urine Negative (Negative); Blood Urine 1+ (Negative); Color Urine Yellow (Yellow); Glucose Urine UA Negative (Negative); Ketones Urine Negative (Negative); Leukocyte Esterase Ur Negative LEU/UL (Negative); Need Manual Microscopic Reviewed; Nitrate Urine Negative (Negative); Protein Urine 1+ mg/dL (Negative); RBC Urine 0-2 /hpf (0-2); Specific Grav Ur 1.019 (1.001-1.035); Squamous Epithelial Cell Urine None seen /hpf (Few); Urobilinogen Urine 0.2 mg/dL (<2.0); WBC Urine 0-5 /hpf; pH Urine 5.5 (5.0-9.0)
[2023-12-09 21:21] LABS: Add Urine Microscopic? YES
[2023-12-09] MEDS: AZITHROMYCIN 500 MG/NS 250 ML 500 MG/250 ML BAG 250 MG IVPB (22:02)
[2023-12-10] VITALS (26 sets, daily range): BP systolic 108–132; BP diastolic 50–67; PULSE 3–134; RESP 18–28; TEMP 36.7–37.1; O2SAT 89–97
[2023-12-10] MEDS: metroNIDAZOLE 500 MG/ISO 100ML 500 MG/100 ML BAG 100 MG IVPB ×5 (00:12→23:29)
--- NOTE | 2023-12-10 00:17 | PC.NURSE ---
This patient, Leslee Mota, was received from PACU on 12/09/23 at 2020. Patient/family oriented to unit policies and routines
[2023-12-10] MEDS: IPRATROPIUM 0.5 MG/ALBUTEROL SULFATE 2.5 MG AMPUL.NEB 3 ML INHALATION ×4 (02:48→20:39)
[2023-12-10 06:02] LABS: Basophils Percent Auto 0.2 % (0.2-1.2); Hematocrit 40.6 % (37.0-47.0); Hemoglobin 12.9 g/dL (12.0-15.0); Immature Granulocyte Absolute 0.18 K/mm3 (0.00-0.031); Immature Granulocyte Percent A 0.7 % (0-0.5); Immature Platelet Fraction Pct 10.1 % (0.9-11.2); Lymphocytes Percent Auto 3.8 % (18.3-44.2); Mean Corpuscular HGB Conc 31.8 g/dl (32-36); Mean Corpuscular Hemoglobin 31.1 pg (26-34); Mean Corpuscular Volume 97.8 fl (80-100); Mean Platelet Volume 12.3 fl (7.4-10.4); Monocytes Absolute Auto 1.1 K/mm3 (0.1-0.6); Monocytes Percent Auto 4.2 % (2.6-8.5); Neutrophils Absolute Auto 24.3 K/mm3 (1.3-6.7); Neutrophils Percent Auto 91.1 % (45.5-73.1); Platelet Count Result 83 k/mm3 (150-375); Red Blood Count 4.15 M/mm3 (4.2-5.4); Red Cell Distribution Width 14.9 % (11.5-14.5); White Blood Count 26.6 K/mm3 (4.5-10.0)
[2023-12-10 06:11] LABS: Alanine Aminotransferase 59 U/L (6-35); Albumin Level 2.3 g/dL (3.5-5.1); Alkaline Phosphatase 149 U/L (38-126); Anion Gap 4 mmol/L (8-16); Aspartate Amino Transferase 46 U/L (14-36); Blood Urea Nitrogen 45 mg/dL (7-17); Calcium 8.2 mg/dL (8.4-10.2); Carbon Dioxide 25 mmol/L (22-30); Chloride 107 mmol/L (98-107); Estimated CRCL calculation 21 ml/min; Estimated Glomerular Filt Rate 33; Glucose 112 mg/dL (65-110); Magnesium 2.2 mg/dL (1.6-2.3); Potassium 4.5 mmol/L (3.4-5.0); Sodium 136 mmol/L (137-145)
[2023-12-10 07:10] LABS: Platelet Estimate Decreased (Adequate); Schistocytes None Seen (NORMAL)
[2023-12-10] MEDS: FUROSEMIDE INJ 40 MG/4 ML VIAL 20 MG IV PUSH (09:28)
[2023-12-10] MEDS: METOPROLOL TARTRATE INJ 5 MG/5 ML VIAL IV PUSH ×2 (09:28→18:26)
[2023-12-10] MEDS: ENOXAPARIN 30 MG/0.3 ML SYRINGE SUB-Q (09:29)
[2023-12-10] MEDS: dilTIAZem HCl INJ 25 MG/5 ML VIAL IV PUSH ×2 (09:29→16:19)
[2023-12-10] MEDS: PANTOPRAZOLE SODIUM IV 40 MG VIAL IV PUSH ×2 (09:29→21:03)
[2023-12-10] MEDS: CEFEPIME 1 GM/NS 50 ML 1 GM/50 ML BAG IVPB ×2 (09:29→21:05)
--- NOTE | 2023-12-10 10:50 | PCPTNOTE ---
pt refused PT evaluation, stated that she is not getting up until she gets more sleep, will try to complete PT eval at a later time
--- NOTE | 2023-12-10 10:51 | P.PNAN_ITS ---
Anes - Prog Note Post-Op Date/Time: 12/10/23 10:51 Cardiovascular status: normal Respiratory status: normal Airway patency: baseline Mental status: baseline Post-Op hydration status: normal and other Vital Signs: Last Vital Signs Temp 98.2 F 12/10/23 07:43 Pulse 125 H 12/10/23 09:28 Resp 20 12/10/23 08:50 BP 117/50 L 12/10/23 07:43 Pulse Ox 89 L 12/10/23 07:43 O2 Del Method Nasal Cannula 12/10/23 04:00 O2 Flow Rate 1 12/10/23 04:00 Pain Score (VAS): 0 I/O: Intake & Output 12/09/23 12/10/23 12/10/23 23:59 07:59 15:59 Intake Total 1900 200 Output Total 595 545 Balance 1305 -345 Laboratory Tests 12/10/23 05:34 12/10/23 05:34 12/09/23 12/10/23 20:54 05:34 WBC 26.6 H RBC 4.15 L Hgb 12.9 Hct 40.6 MCV 97.8 MCH 31.1 MCHC 31.8 L RDW 14.9 H Plt Count 83 L MPV 12.3 H Immature Gran % (Auto) 0.7 H Neut % (Auto) 91.1 H Lymph % (Auto) 3.8 L [place] % (Auto) 4.2 Eos % (Auto) 0.0 Baso % (Auto) 0.2 Lymph # (Auto) 1.00 [place] # (Auto) 1.1 H Eos # (Auto) 0.0 Baso # (Auto) 0.0 Abs Immat Gran (auto) 0.18 H Absolute Neuts (auto) 24.3 H Absolute Nucleated RBC 0.0 Nucleated RBC % 0.0 Platelet Estimate Decreased % Immature Plt Fraction 10.1 Schistocytes None seen Sodium 136 L Potassium 4.5 Chloride 107 Carbon Dioxide 25 Anion Gap 4 L BUN 45 H Creatinine 1.50 H Estim Creat Clear Calc 21 Estimated GFR 33 L Glucose 112 H Calcium 8.2 L Magnesium 2.2 Total Bilirubin 1.0 AST 46 H ALT 59 H Alkaline Phosphatase 149 H Total Protein 5.0 L Albumin 2.3 L Urine Color Yellow Urine Appearance Clear Urine pH 5.5 Ur Specific [place] 1.019 Urine Protein 1+ H Urine Glucose (UA) Negative Urine Ketones Negative Ur Blood (Man) 1+ H Urine Nitrate Negative Urine Bilirubin Negative Urine Urobilinogen 0.2 Add Ur Microanalysis Reviewed Leukocyte Esterase Rfl Negative Urine RBC 0-2 Urine WBC 0-5 Ur Squamous Epith Cells None seen Urine Bacteria None seen Urine Casts 11-20 Ur L.pneumophila Ag Pending Urine Pneumococcal Ag Pending Microbiology 12/08/23 22:44 Blood Blood Culture - Preliminary 12/08/23 22:05 Blood Blood Culture - Preliminary Post-procedural complaints: none Patient Feedback: Patient satisfied with anesthetic care.NG remains to LIS, NPO.
--- NOTE | 2023-12-10 11:39 | PM.PNGS ---
Progress Note: A&P Assessment and Plan (1) Perforated duodenal ulcer: Code(s): K26.5 - Chronic or unspecified duodenal ulcer with perforation Status: Acute Assessment and Plan: Continue Protonix 40 mg b.i.d. Continue bowel rest with NG decompression Continue cefepime and Flagyl, could consider adding antifungal coverage if white blood count not improved tomorrow Will plan to get water-soluble upper GI x-ray on Tuesday to assess if ulcer has completely sealed (2) Sepsis: Code(s): A41.9 - Sepsis, unspecified organism Status: Acute (3) Right lower lobe pneumonia: Code(s): J18.9 - Pneumonia, unspecified organism Status: Acute Subjective Subjective Date/Time Seen: 12/10/23 11:39 Interval history: Patient still complaining of some abdominal pain. Complaining of NG tube and inability to drink water. No fevers. Exam GI: Inspection: incision (Intact with glue) and other (YVROSE serosanguineous) GI Palp: Yes Soft to palpation, Yes Tenderness to palpation present (GI) (Incisional) and No Guarding due to palpation present (GI) Objective Data Vital Signs Vital Signs: Vital Signs - 24 hr 12/09/23 14:00 12/09/23 16:55 12/09/23 18:34 Temperature 36.6 C 36.9 C 36.4 C L Pulse Rate 90 107 H 102 H Respiratory Rate 18 20 22 H Blood Pressure 105/76 124/61 137/89 Pulse Oximetry 92 92 94 Oxygen Delivery Nasal Cannula Simple Face Mask Oxygen Flow Rate 1 8 12/09/23 18:49 12/09/23 19:04 12/09/23 19:19 Temperature Pulse Rate 109 H 101 H 101 H Respiratory Rate 13 15 13 Blood Pressure 145/67 H 156/72 H 132/79 Pulse Oximetry 99 100 100 Oxygen Delivery Simple Face Mask Simple Face Mask Simple Face Mask Oxygen Flow Rate 8 8 5 12/09/23 19:34 12/09/23 19:49 12/09/23 20:02 Temperature Pulse Rate 108 H 107 H 104 H Respiratory Rate 15 14 14 Blood Pressure 129/70 126/69 117/67 Pulse Oximetry 100 99 100 Oxygen Delivery Simple Face Mask Simple Face Mask Room Air Oxygen Flow Rate 5 5 12/09/23 20:37 12/09/23 20:38 12/09/23 20:20 Temperature 36.4 C Pulse Rate 106 H 110 H Respiratory Rate 20 18 Blood Pressure 105/85 Pulse Oximetry 95 97 Oxygen Delivery Nasal Cannula Oxygen Flow Rate 2 12/09/23 21:20 12/09/23 22:20 12/09/23 23:37 Temperature 36.4 C 36.4 C L 36.4 C L Pulse Rate 108 H 105 H 112 H Respiratory Rate 18 18 18 Blood Pressure 113/50 L 93/48 L 99/62 L Pulse Oximetry 99 95 94 Oxygen Delivery Oxygen Flow Rate 12/10/23 02:50 12/10/23 03:25 12/10/23 03:36 Temperature 36.7 C Pulse Rate 3 L 110 H 108 H Respiratory Rate 20 18 Blood Pressure 108/53 L Pulse Oximetry 97 97 Oxygen Delivery Oxygen Flow Rate 12/09/23 20:00 12/09/23 22:00 12/10/23 00:00 Temperature Pulse Rate 106 H 108 H 109 H Respiratory Rate Blood Pressure Pulse Oximetry Oxygen Delivery Oxygen Flow Rate 12/10/23 02:00 12/09/23 20:30 12/10/23 00:00 Temperature Pulse Rate 104 H 108 H 112 H Respiratory Rate 18 18 Blood Pressure Pulse Oximetry 99 94 Oxygen Delivery Nasal Cannula Nasal Cannula Oxygen Flow Rate 2 2 12/10/23 04:00 12/10/23 04:00 12/10/23 06:00 Temperature Pulse Rate 110 H 109 H 126 H Respiratory Rate 18 Blood Pressure Pulse Oximetry 97 Oxygen Delivery Nasal Cannula Oxygen Flow Rate 1 12/10/23 07:43 12/10/23 08:50 12/10/23 09:28 Temperature 36.8 C Pulse Rate 119 H 119 H 125 H Respiratory Rate 24 H 20 Blood Pressure 117/50 L Pulse Oximetry 89 L Oxygen Delivery Oxygen Flow Rate Intake/Output Intake/Output: Intake & Output 12/07/23 12/08/23 12/09/23 12/10/23 23:59 23:59 23:59 23:59 Intake Total 300 2590 200 Output Total 1095 545 Balance 300 6918 -700 Meds/Results Medications: Active Medications Generic Name Dose Route Start Last Admin Trade Name Freq PRN Reason Stop Dose Admin Albuterol/Ipratropium 3 ml 12/09/23 02:00 12/10/23 08:50 Ip
[2023-12-10] MEDS: SODIUM CHLORIDE 0.9% IV 1,000 ML 75 ML IV CONT (12:00)
--- NOTE | 2023-12-10 14:03 | P.PNIM_ITS ---
Progress Note: A&P Assessment and Plan (1) Sepsis: Code(s): A41.9 - Sepsis, unspecified organism Status: Acute Assessment and Plan: * Patient presented meeting sepsis criteria with leukocytosis, lactic acidosis, unknown source of infection and tachycardia. * Patient started on broad-spectrum antibiotics of Rocephin and azithromycin ED in given IV fluids. * Lactic acid has trended downward to 1.2. * Patient not meeting shock criteria. * Antibiotic therapy will be brought and from Rocephin to cefepime to cover for Pseudomonas infection. * As patient has pneumonia will check Legionella as well as strep Pneumo from urine * Provide supportive care with supplemental oxygenation. * Wean oxygen as tolerated. * Trend daily labs and vital signs. * Continue DuoNebs q.6 hours * Patient is full code. * 12/10/23: Pt continues to meet Sepsis criteria. Etiology now GI w/perforation and abscess, CAP, or combination of both. Continuing abx at this time of Flagyl, Cefepime. We will continue to monitor her VS and her labs closely. As recommended per Gen Hooper, may consider adding an anti-fungal tomorrow if WBC is not improving. Preliminary BC negative x2, no left shift to WBC's. (2) Perforated duodenal ulcer: Code(s): K26.5 - Chronic or unspecified duodenal ulcer with perforation Status: Acute Assessment and Plan: * Acute perforation on 12/09/23 requiring emergent intervention by Dr. Singh. * Today is POD #1 from a Laparoscopic repair of perforated duodenal ulcer with omental ghassan patch and laparoscopic drainage of intra-abdominal abscess. * This is most likely a co-diagnosis and co-cause of pt's current dx of sepsis. * Sgy co-managing with medicine. * NG to LWIS * YVROSE drain to abdominal incision * PRN pain meds and PRN anti-emetics. * Currently NPO, and we have switched as many meds to IVP that we can. * Continue to monitor VS and trend labs. * Continue IVF hydration w/increased rate to 100 ml/hr * Accurate I&O with Barrera catheter. (3) Right lower lobe pneumonia: Code(s): J18.9 - Pneumonia, unspecified organism Status: Acute Assessment and Plan: * Possible likely cause of sepsis. Unknown bacterial agent. * Antibiotic therapy expanded from Rocephin to cefepime to cover for possible pseudomonal causation. * See plan for 1. * 12/10/23: Continue to treat PNA with nebs and abx. Monitor VS and trend labs. Preliminary BC negative x2, no left shift to WBC's. (4) Atrial fibrillation: Qualifiers: Atrial fibrillation type: paroxysmal Qualified Code(s): I48.0 - Paroxysmal atrial fibrillation Code(s): I48.91 - Unspecified atrial fibrillation Status: Acute Assessment and Plan: * Currently not well controlled as pt is NPO and cannot take her oral Diltiazem and Beta familia * Oral daily Diltiazem is switched to 28 mg IVP Daily, with an extra dose this evening as she remains tachycardic and in fib. * Oral Metoprolol is switched to IVP BID. * Pt. consistently tachy up to the 120s. If she remains elevated with her heart rate, will consider starting Cardizem drip until she can once again resume her po meds. Order given to start if her heart rate continues to maintain above 120 bpm and the IMU nurse is made aware. * Anticoagulation being provided by Lovenox 30 mg SC daily. (5) Weakness generalized: Code(s): R53.1 - Weakness Status: Acute Assessment and Plan: * Secondary to problems 1 And 2. * PT/OT evaluation. * Fall precautions (6) Leukocytosis: Code(s): D72.829 - Elevated white blood cell count, unspecified
--- NOTE | 2023-12-10 14:03 | PM.IMPN ---
Progress Note: A&P Assessment and Plan (1) Sepsis: Code(s): A41.9 - Sepsis, unspecified organism Status: Acute Assessment and Plan: Patient presented meeting sepsis criteria with leukocytosis, lactic acidosis, unknown source of infection and tachycardia. Patient started on broad-spectrum antibiotics of Rocephin and azithromycin ED in given IV fluids. Lactic acid has trended downward to 1.2. Patient not meeting shock criteria. Antibiotic therapy will be brought and from Rocephin to cefepime to cover for Pseudomonas infection. As patient has pneumonia will check Legionella as well as strep Pneumo from urine Provide supportive care with supplemental oxygenation. Wean oxygen as tolerated. Trend daily labs and vital signs. Continue DuoNebs q.6 hours Patient is full code. 12/10/23: Pt continues to meet Sepsis criteria. Etiology now GI w/perforation and abscess, CAP, or combination of both. Continuing abx at this time of Flagyl, Cefepime. We will continue to monitor her VS and her labs closely. As recommended per Gen Hooper, may consider adding an anti-fungal tomorrow if WBC is not improving. Preliminary BC negative x2, no left shift to WBC's. (2) Perforated duodenal ulcer: Code(s): K26.5 - Chronic or unspecified duodenal ulcer with perforation Status: Acute Assessment and Plan: Acute perforation on 12/09/23 requiring emergent intervention by Dr. Singh. Today is POD #1 from a Laparoscopic repair of perforated duodenal ulcer with omental ghassan patch and laparoscopic drainage of intra-abdominal abscess. This is most likely a co-diagnosis and co-cause of pt's current dx of sepsis. Gen Hooper co-managing with medicine. NG to LWIS YVROSE drain to abdominal incision PRN pain meds and PRN anti-emetics. Currently NPO, and we have switched as many meds to IVP that we can. Continue to monitor VS and trend labs. Continue IVF hydration w/increased rate to 100 ml/hr Accurate I&O with Barrera catheter. (3) Right lower lobe pneumonia: Code(s): J18.9 - Pneumonia, unspecified organism Status: Acute Assessment and Plan: Possible likely cause of sepsis. Unknown bacterial agent. Antibiotic therapy expanded from Rocephin to cefepime to cover for possible pseudomonal causation. See plan for 1. 12/10/23: Continue to treat PNA with nebs and abx. Monitor VS and trend labs. Preliminary BC negative x2, no left shift to WBC's. (4) Atrial fibrillation: Qualifiers: Atrial fibrillation type: paroxysmal Qualified Code(s): I48.0 - Paroxysmal atrial fibrillation Code(s): I48.91 - Unspecified atrial fibrillation Status: Acute Assessment and Plan: Currently not well controlled as pt is NPO and cannot take her oral Diltiazem and Beta familia Oral daily Diltiazem is switched to 28 mg IVP Daily, with an extra dose this evening as she remains tachycardic and in fib. Oral Metoprolol is switched to IVP BID. Pt. consistently tachy up to the 120s. If she remains elevated with her heart rate, will consider starting Cardizem drip until she can once again resume her po meds. Order given to start if her heart rate continues to maintain above 120 bpm and the IMU nurse is made aware. Anticoagulation being provided by Lovenox 30 mg SC daily. (5) Weakness generalized: Code(s): R53.1 - Weakness Status: Acute Assessment and Plan: Secondary to problems 1 And 2. PT/OT evaluation. Fall precautions (6) Leukocytosis: Code(s): D72.829 - Elevated white blood cell count, unspecified Status: Acute Assessment and Plan: Interval increase and leukocytosis to 30,000. Etiology sepsis and community-acquired pneumonia. Antibiotic therapy has been broadened from Rocephin to cefepime. Continue treatments for problems 1. And 2. Trend labs 12/10/23: Interval improvement in the setting of Sepsis from both CAP and Bowel perforation yesterday with emergent surger
[2023-12-10] MEDS: dilTIAZem 100 MG/100 ML 100 MG/100 ML BAG IV CONT (16:20)
[2023-12-10] MEDS: SODIUM CHLORIDE 0.9% IV 1,000 ML 100 ML IV CONT (16:28)
[2023-12-10] MEDS: MORPHINE SULFATE (*CRX) 2 MG/ML INJ IV PUSH (21:07)
[2023-12-10] MEDS: AZITHROMYCIN 500 MG/NS 250 ML 500 MG/250 ML BAG 250 MG IVPB (22:12)
[2023-12-11] VITALS (28 sets, daily range): BP systolic 106–144; BP diastolic 46–71; PULSE 80–143; RESP 18–20; TEMP 35.6–36.8; O2SAT 92–97
[2023-12-11 05:17] LABS: Hematocrit 39.1 % (37.0-47.0); Mean Corpuscular HGB Conc 30.7 g/dl (32-36); Mean Corpuscular Hemoglobin 31.3 pg (26-34); Mean Corpuscular Volume 101.8 fl (80-100); Mean Platelet Volume 11.8 fl (7.4-10.4); Platelet Count Result 93 k/mm3 (150-375); Red Blood Count 3.84 M/mm3 (4.2-5.4); Red Cell Distribution Width 15.6 % (11.5-14.5)
[2023-12-11 05:25] LABS: White Blood Count 20.6 K/mm3 (4.5-10.0)
[2023-12-11 05:36] LABS: Alanine Aminotransferase 48 U/L (6-35); Albumin Level 2.3 g/dL (3.5-5.1); Alkaline Phosphatase 134 U/L (38-126); Anion Gap 3 mmol/L (8-16); Aspartate Amino Transferase 37 U/L (14-36); Bilirubin,Total 0.7 mg/dL (0.2-1.3); Blood Urea Nitrogen 33 mg/dL (7-17); Calcium 8.1 mg/dL (8.4-10.2); Carbon Dioxide 27 mmol/L (22-30); Chloride 111 mmol/L (98-107); Estimated CRCL calculation 28 ml/min; Estimated Glomerular Filt Rate 47; Glucose 94 mg/dL (65-110); Potassium 3.5 mmol/L (3.4-5.0); Sodium 141 mmol/L (137-145)
[2023-12-11] MEDS: metroNIDAZOLE 500 MG/ISO 100ML 500 MG/100 ML BAG 100 MG IVPB ×4 (06:15→23:52)
[2023-12-11] MEDS: SODIUM CHLORIDE 0.9% IV 1,000 ML 100 ML IV CONT ×2 (06:15→17:21)
--- NOTE | 2023-12-11 08:00 | P.PNIM_ITS ---
Progress Note: A&P Assessment and Plan (1) Sepsis: Code(s): A41.9 - Sepsis, unspecified organism Status: Acute Assessment and Plan: * Patient presented meeting sepsis criteria with leukocytosis, lactic acidosis, unknown source of infection and tachycardia. * Patient started on broad-spectrum antibiotics of Rocephin and azithromycin ED in given IV fluids. * Lactic acid has trended downward to 1.2. * Patient not meeting shock criteria. * Antibiotic therapy will be brought and from Rocephin to cefepime to cover for Pseudomonas infection. * As patient has pneumonia will check Legionella as well as strep Pneumo from urine * Provide supportive care with supplemental oxygenation. * Wean oxygen as tolerated. * Trend daily labs and vital signs. * Continue DuoNebs q.6 hours * Patient is full code. * 12/10/23: Pt continues to meet Sepsis criteria. Etiology now GI w/perforation and abscess, CAP, or combination of both. Continuing abx at this time of Flagyl, Cefepime. We will continue to monitor her VS and her labs closely. As recommended per Gen Sgy, may consider adding an anti-fungal tomorrow if WBC is not improving. Preliminary BC negative x2, no left shift to WBC's. * 12/11/23: Patient no longer meeting sepsis criteria. Tachycardia is likely the cause in the setting of patient being NPO and not being able to take her oral Cardizem. Cardizem drip was started last evening and orders for titration to 10 mg per hour is ordered this morning. Suspicion that in setting of no acute signs of sepsis other than heart rate patient's tachycardia is due to atrial fibrillation. Continuing current antibiotics of Flagyl, cefepime and azithromycin to cover abdominal infection as well as right middle lobe and lower lobe pneumonia. Cultures remain without any growth. There is interval improved leukocytosis with WBCs this morning of 20K and no left shift. Will defer adding antifungal to medication regimen as suggested by surgery if there was no improvment in her Leukocytosis today, as the pt appears to have had interval improvement overnight. (2) Perforated duodenal ulcer: Code(s): K26.5 - Chronic or unspecified duodenal ulcer with perforation Status: Acute Assessment and Plan: * Acute perforation on 12/09/23 requiring emergent intervention by Dr. Singh. * Today is POD #1 from a Laparoscopic repair of perforated duodenal ulcer with omental ghassan patch and laparoscopic drainage of intra-abdominal abscess. * This is most likely a co-diagnosis and co-cause of pt's current dx of sepsis. * Gen Sgy co-managing with medicine. * NG to LWIS * YVROSE drain to abdominal incision * PRN pain meds and PRN anti-emetics. * Currently NPO, and we have switched as many meds to IVP that we can. * Continue to monitor VS and trend labs. * Continue IVF hydration w/increased rate to 100 ml/hr * Accurate I&O with Roman catheter. * 12/11/23: Surgery continuing to follow and manage post-operatively. Remains currently w/NG tube, YVROSE drain, and very hypoactive bowel sounds. Today is POD #2. Continuing pain meds and anti-emetics prn. Continue IVF for hydration and accurate I&O with roman. Continue incentive spirometry. (3) Right lower lobe pneumonia: Code(s): J18.9 - Pneumonia, unspecified organism Status: Acute Assessment and Plan: * Possible likely cause of sepsis. Unknown bacterial agent. * Antibiotic therapy expanded from Rocephin to cefepime to cover for possible pseudomonal causation. * See plan for 1. * 12/10/23: Continue to treat PNA with nebs and abx. Monitor VS and trend labs. Preliminary BC negative x2, no left shift to WBC's. * 12/11/23:
--- NOTE | 2023-12-11 08:00 | PM.IMPN ---
Progress Note: A&P Assessment and Plan (1) Sepsis: Code(s): A41.9 - Sepsis, unspecified organism Status: Acute Assessment and Plan: Patient presented meeting sepsis criteria with leukocytosis, lactic acidosis, unknown source of infection and tachycardia. Patient started on broad-spectrum antibiotics of Rocephin and azithromycin ED in given IV fluids. Lactic acid has trended downward to 1.2. Patient not meeting shock criteria. Antibiotic therapy will be brought and from Rocephin to cefepime to cover for Pseudomonas infection. As patient has pneumonia will check Legionella as well as strep Pneumo from urine Provide supportive care with supplemental oxygenation. Wean oxygen as tolerated. Trend daily labs and vital signs. Continue DuoNebs q.6 hours Patient is full code. 12/10/23: Pt continues to meet Sepsis criteria. Etiology now GI w/perforation and abscess, CAP, or combination of both. Continuing abx at this time of Flagyl, Cefepime. We will continue to monitor her VS and her labs closely. As recommended per Gen Sgy, may consider adding an anti-fungal tomorrow if WBC is not improving. Preliminary BC negative x2, no left shift to WBC's. 12/11/23: Patient no longer meeting sepsis criteria. Tachycardia is likely the cause in the setting of patient being NPO and not being able to take her oral Cardizem. Cardizem drip was started last evening and orders for titration to 10 mg per hour is ordered this morning. Suspicion that in setting of no acute signs of sepsis other than heart rate patient's tachycardia is due to atrial fibrillation. Continuing current antibiotics of Flagyl, cefepime and azithromycin to cover abdominal infection as well as right middle lobe and lower lobe pneumonia. Cultures remain without any growth. There is interval improved leukocytosis with WBCs this morning of 20K and no left shift. Will defer adding antifungal to medication regimen as suggested by surgery if there was no improvment in her Leukocytosis today, as the pt appears to have had interval improvement overnight. (2) Perforated duodenal ulcer: Code(s): K26.5 - Chronic or unspecified duodenal ulcer with perforation Status: Acute Assessment and Plan: Acute perforation on 12/09/23 requiring emergent intervention by Dr. Singh. Today is POD #1 from a Laparoscopic repair of perforated duodenal ulcer with omental ghassan patch and laparoscopic drainage of intra-abdominal abscess. This is most likely a co-diagnosis and co-cause of pt's current dx of sepsis. Gen Sgy co-managing with medicine. NG to LWIS YVROSE drain to abdominal incision PRN pain meds and PRN anti-emetics. Currently NPO, and we have switched as many meds to IVP that we can. Continue to monitor VS and trend labs. Continue IVF hydration w/increased rate to 100 ml/hr Accurate I&O with Roman catheter. 12/11/23: Surgery continuing to follow and manage post-operatively. Remains currently w/NG tube, YVROSE drain, and very hypoactive bowel sounds. Today is POD #2. Continuing pain meds and anti-emetics prn. Continue IVF for hydration and accurate I&O with roman. Continue incentive spirometry. (3) Right lower lobe pneumonia: Code(s): J18.9 - Pneumonia, unspecified organism Status: Acute Assessment and Plan: Possible likely cause of sepsis. Unknown bacterial agent. Antibiotic therapy expanded from Rocephin to cefepime to cover for possible pseudomonal causation. See plan for 1. 12/10/23: Continue to treat PNA with nebs and abx. Monitor VS and trend labs. Preliminary BC negative x2, no left shift to WBC's. 12/11/23: Continue treatment with Cefepime and Azithromycin to cover PNA. BC are remaining negative preliminarily. No left shift to WBC's. Will order Repeat CXR for AM to check interval improvement vs. worsening of RML and RLL PNA. Pt. continues to require 1L-2L Supplemental oxygen. Nursing staff encouraged to wean as appropriate. Continue Telemetry. Jesse
[2023-12-11] MEDS: PANTOPRAZOLE SODIUM IV 40 MG VIAL IV PUSH ×2 (08:27→21:22)
[2023-12-11] MEDS: dilTIAZem HCl INJ 25 MG/5 ML VIAL IV PUSH (08:27)
[2023-12-11] MEDS: FUROSEMIDE INJ 40 MG/4 ML VIAL 20 MG IV PUSH (08:27)
[2023-12-11] MEDS: ENOXAPARIN 30 MG/0.3 ML SYRINGE SUB-Q (08:27)
[2023-12-11] MEDS: LABETALOL HCL INJ 100 MG/20 ML VIAL 20 MG IV PUSH (08:27)
[2023-12-11] MEDS: CEFEPIME 1 GM/NS 50 ML 1 GM/50 ML BAG IVPB ×2 (08:28→20:31)
[2023-12-11] MEDS: dilTIAZem 100 MG/100 ML 100 MG/100 ML BAG 10 MG IV CONT ×2 (08:38→17:50)
[2023-12-11] MEDS: IPRATROPIUM 0.5 MG/ALBUTEROL SULFATE 2.5 MG AMPUL.NEB 3 ML INHALATION ×3 (09:24→20:36)
[2023-12-11] MEDS: MORPHINE SULFATE (*CRX) 2 MG/ML INJ IV PUSH (09:54)
--- NOTE | 2023-12-11 11:40 | PM.PNGS ---
Progress Note: A&P Assessment and Plan (1) Perforated duodenal ulcer: Code(s): K26.5 - Chronic or unspecified duodenal ulcer with perforation Status: Acute Assessment and Plan: Continue Protonix 40 mg b.i.d. Continue bowel rest with NG decompression, will allow ice chips today. Continue cefepime and Flagyl, add Micafungin today due to persistent leukocytosis Will plan to get water-soluble upper GI x-ray on Tuesday to assess if ulcer has completely sealed (2) Sepsis: Code(s): A41.9 - Sepsis, unspecified organism Status: Acute (3) Thrombocytopenia: Code(s): D69.6 - Thrombocytopenia, unspecified Status: Acute Subjective Subjective Date/Time Seen: 12/11/23 11:40 Interval history: Feeling a little better today. Pain improving. No fevers. Exam GI: Inspection: incision (Intact with glue) and other (YVROSE serosanguineous) GI Palp: Yes Soft to palpation, Yes Tenderness to palpation present (GI) (Incisional) and No Guarding due to palpation present (GI) Objective Data Vital Signs Vital Signs: Vital Signs - 24 hr 12/10/23 11:57 12/10/23 14:41 12/10/23 16:09 Temperature 37.0 C 37.1 C Pulse Rate 125 H 130 H Respiratory Rate 20 28 H Blood Pressure 122/59 L 132/67 Pulse Oximetry 94 95 94 Oxygen Delivery Nasal Cannula Oxygen Flow Rate 2 Fraction of Inspired Oxygen 12/10/23 16:20 12/10/23 12:00 12/10/23 16:00 Temperature Pulse Rate 130 H Respiratory Rate Blood Pressure Pulse Oximetry 92 94 Oxygen Delivery Nasal Cannula Nasal Cannula Oxygen Flow Rate 1 1 Fraction of Inspired Oxygen 12/10/23 18:26 12/10/23 12:00 12/10/23 14:00 Temperature Pulse Rate 115 H 120 H 113 H Respiratory Rate Blood Pressure Pulse Oximetry Oxygen Delivery Oxygen Flow Rate Fraction of Inspired Oxygen 12/10/23 16:00 12/10/23 18:00 12/10/23 20:40 Temperature Pulse Rate 134 H 118 H 110 H Respiratory Rate 20 Blood Pressure Pulse Oximetry 96 Oxygen Delivery Nasal Cannula Oxygen Flow Rate 1 Fraction of Inspired Oxygen 24 12/10/23 20:40 12/10/23 20:45 12/10/23 21:09 Temperature 36.7 C Pulse Rate 110 H 110 H 118 H Respiratory Rate 20 20 20 Blood Pressure 116/53 L Pulse Oximetry 93 Oxygen Delivery Oxygen Flow Rate Fraction of Inspired Oxygen 12/11/23 00:29 12/10/23 20:00 12/11/23 00:00 Temperature 36.6 C Pulse Rate 115 H 118 H 115 H Respiratory Rate 20 20 20 Blood Pressure 106/60 Pulse Oximetry 95 93 95 Oxygen Delivery Nasal Cannula Nasal Cannula Oxygen Flow Rate 1 1 Fraction of Inspired Oxygen 12/10/23 20:00 12/10/23 22:00 12/11/23 00:00 Temperature Pulse Rate 125 H 124 H 118 H Respiratory Rate Blood Pressure Pulse Oximetry Oxygen Delivery Oxygen Flow Rate Fraction of Inspired Oxygen 12/11/23 02:00 12/11/23 03:59 12/11/23 04:00 Temperature 36.6 C Pulse Rate 116 H 129 H 129 H Respiratory Rate 20 20 Blood Pressure 125/46 L Pulse Oximetry 94 94 Oxygen Delivery Nasal Cannula Oxygen Flow Rate 1 Fraction of Inspired Oxygen 12/11/23 04:00 12/11/23 06:00 12/10/23 22:00 Temperature Pulse Rate 129 H 123 H 124 H Respiratory Rate Blood Pressure Pulse Oximetry Oxygen Delivery Oxygen Flow Rate Fraction of Inspired Oxygen 12/11/23 00:00 12/11/23 02:00 12/11/23 04:00 Temperature Pulse Rate 115 H 116 H 129 H Respiratory Rate Blood Pressure 106/60 125/46 L Pulse Oximetry Oxygen Delivery Oxygen Flow Rate Fraction of Inspired Oxygen 12/11/23 06:00 12/11/23 07:30 12/11/23 08:19 Temperature Pulse Rate 123 H 143 H Respiratory Rate Blood Pressure 125/46 L Pulse Oximetry Oxygen Delivery Nasal Cannula Oxygen Flow Rate 1 Fraction of Inspired Oxygen 12/11/23 08:27 12/11/23 08:38 12/11/23 08:51 Temperature 35.6 C L Pulse Rate 130 H 80 135 H Respiratory Rate 18 B
[2023-12-11] MEDS: MICAFUNGIN SODIUM 100 MG in SODIUM CHLORIDE 0.9% IV 100 ML IVPB (12:17)
--- NOTE | 2023-12-11 16:02 | PCOTNOTE ---
Attempted OT reevaluation x2; pt. refused to get out of bed.
[2023-12-11] MEDS: AZITHROMYCIN 500 MG/NS 250 ML 500 MG/250 ML BAG 250 MG IVPB (21:22)
[2023-12-12] VITALS (33 sets, daily range): BP systolic 116–159; BP diastolic 40–76; PULSE 86–155; RESP 16–95; TEMP 35.8–36.6; O2SAT 20–96
[2023-12-12] MEDS: IPRATROPIUM 0.5 MG/ALBUTEROL SULFATE 2.5 MG AMPUL.NEB 3 ML INHALATION ×4 (02:32→20:13)
[2023-12-12] MEDS: dilTIAZem 100 MG/100 ML 100 MG/100 ML BAG 10 MG IV CONT ×3 (02:51→20:24)
[2023-12-12] MEDS: SODIUM CHLORIDE 0.9% IV 1,000 ML 100 ML IV CONT (05:07)
[2023-12-12 05:09] LABS: Immature Platelet Fraction Pct 7.6 % (0.9-11.2); Mean Corpuscular Hemoglobin 30.9 pg (26-34); Mean Corpuscular Volume 103.1 fl (80-100); Mean Platelet Volume 12.3 fl (7.4-10.4); Platelet Count Result 121 k/mm3 (150-375); Red Blood Count 3.88 M/mm3 (4.2-5.4); Red Cell Distribution Width 15.8 % (11.5-14.5); White Blood Count 19.4 K/mm3 (4.5-10.0)
[2023-12-12] MEDS: metroNIDAZOLE 500 MG/ISO 100ML 500 MG/100 ML BAG 100 MG IVPB ×3 (05:09→18:00)
[2023-12-12] MEDS: MORPHINE SULFATE (*CRX) 2 MG/ML INJ IV PUSH ×2 (05:16→16:39)
[2023-12-12 05:59] LABS: Anion Gap 5 mmol/L (8-16); Blood Urea Nitrogen 27 mg/dL (7-17); Calcium 8.6 mg/dL (8.4-10.2); Carbon Dioxide 26 mmol/L (22-30); Chloride 114 mmol/L (98-107); Estimated CRCL calculation 42 ml/min; Estimated Glomerular Filt Rate > 60; Glucose 104 mg/dL (65-110); Sodium 145 mmol/L (137-145)
--- NOTE | 2023-12-12 09:13 | P.PNIM_ITS ---
Progress Note: A&P Assessment and Plan (1) Sepsis: Code(s): A41.9 - Sepsis, unspecified organism Status: Acute Assessment and Plan: 12/09/23: * Patient presented meeting sepsis criteria with leukocytosis, lactic acidosis, unknown source of infection and tachycardia. * Patient started on broad-spectrum antibiotics of Rocephin and azithromycin ED in given IV fluids. * Lactic acid has trended downward to 1.2. * Patient not meeting shock criteria. * Antibiotic therapy will be brought and from Rocephin to cefepime to cover for Pseudomonas infection. * As patient has pneumonia will check Legionella as well as strep Pneumo from urine * Provide supportive care with supplemental oxygenation. * Wean oxygen as tolerated. * Trend daily labs and vital signs. * Continue DuoNebs q.6 hours * Patient is full code. 12/10/23: * Pt continues to meet Sepsis criteria. Etiology now GI w/perforation and abscess, CAP, or combination of both. Continuing abx at this time of Flagyl, Cefepime. We will continue to monitor her VS and her labs closely. As recommended per Gen Sgy, may consider adding an anti-fungal tomorrow if WBC is not improving. Preliminary BC negative x2, no left shift to WBC's. 12/11/23: * Patient no longer meeting sepsis criteria. Tachycardia is likely the cause in the setting of patient being NPO and not being able to take her oral Cardizem. Cardizem drip was started last evening and orders for titration to 10 mg per hour is ordered this morning. Suspicion that in setting of no acute signs of sepsis other than heart rate patient's tachycardia is due to atrial fibrillation. Continuing current antibiotics of Flagyl, cefepime and azithromycin to cover abdominal infection as well as right middle lobe and lower lobe pneumonia. Cultures remain without any growth. There is interval improved leukocytosis with WBCs this morning of 20K and no left shift. Will defer adding antifungal to medication regimen as suggested by surgery if there was no improvment in her Leukocytosis today, as the pt appears to have had interval improvement overnight. 12/12/23: * No change to current treatment plan (2) Perforated duodenal ulcer: Code(s): K26.5 - Chronic or unspecified duodenal ulcer with perforation Status: Acute Assessment and Plan: 12/10/23: * Acute perforation on 12/09/23 requiring emergent intervention by Dr. Singh. * Today is POD #1 from a Laparoscopic repair of perforated duodenal ulcer with omental ghassan patch and laparoscopic drainage of intra-abdominal abscess. * This is most likely a co-diagnosis and co-cause of pt's current dx of sepsis. * Gen Sgy co-managing with medicine. * NG to LWIS * YVROSE drain to abdominal incision * PRN pain meds and PRN anti-emetics. * Currently NPO, and we have switched as many meds to IVP that we can. * Continue to monitor VS and trend labs. * Continue IVF hydration w/increased rate to 100 ml/hr * Accurate I&O with Roman catheter. 12/11/23: * Surgery continuing to follow and manage post-operatively. Remains currently w/NG tube, YVROSE drain, and very hypoactive bowel sounds. Today is POD #2. Continuing pain meds and anti-emetics prn. Continue IVF for hydration and accurate I&O with roman. Continue incentive spirometry. 12/12/23: * General surgery following * Small-bowel follow-through * NGT to LIS, bilious drainage noted will likely DC this today and start clears as the upper GI series did not show any extraluminal leakage of contrast. * Continue IVF * Patient passing flatus today * Encouraged patient to take her oral pain medications rather than using ice over incisi
--- NOTE | 2023-12-12 09:13 | PM.IMPN ---
Progress Note: A&P Assessment and Plan (1) Sepsis: Code(s): A41.9 - Sepsis, unspecified organism Status: Acute Assessment and Plan: 12/09/23: Patient presented meeting sepsis criteria with leukocytosis, lactic acidosis, unknown source of infection and tachycardia. Patient started on broad-spectrum antibiotics of Rocephin and azithromycin ED in given IV fluids. Lactic acid has trended downward to 1.2. Patient not meeting shock criteria. Antibiotic therapy will be brought and from Rocephin to cefepime to cover for Pseudomonas infection. As patient has pneumonia will check Legionella as well as strep Pneumo from urine Provide supportive care with supplemental oxygenation. Wean oxygen as tolerated. Trend daily labs and vital signs. Continue DuoNebs q.6 hours Patient is full code. 12/10/23: Pt continues to meet Sepsis criteria. Etiology now GI w/perforation and abscess, CAP, or combination of both. Continuing abx at this time of Flagyl, Cefepime. We will continue to monitor her VS and her labs closely. As recommended per Gen Sgy, may consider adding an anti-fungal tomorrow if WBC is not improving. Preliminary BC negative x2, no left shift to WBC's. 12/11/23: Patient no longer meeting sepsis criteria. Tachycardia is likely the cause in the setting of patient being NPO and not being able to take her oral Cardizem. Cardizem drip was started last evening and orders for titration to 10 mg per hour is ordered this morning. Suspicion that in setting of no acute signs of sepsis other than heart rate patient's tachycardia is due to atrial fibrillation. Continuing current antibiotics of Flagyl, cefepime and azithromycin to cover abdominal infection as well as right middle lobe and lower lobe pneumonia. Cultures remain without any growth. There is interval improved leukocytosis with WBCs this morning of 20K and no left shift. Will defer adding antifungal to medication regimen as suggested by surgery if there was no improvment in her Leukocytosis today, as the pt appears to have had interval improvement overnight. 12/12/23: No change to current treatment plan (2) Perforated duodenal ulcer: Code(s): K26.5 - Chronic or unspecified duodenal ulcer with perforation Status: Acute Assessment and Plan: 12/10/23: Acute perforation on 12/09/23 requiring emergent intervention by Dr. Singh. Today is POD #1 from a Laparoscopic repair of perforated duodenal ulcer with omental ghassan patch and laparoscopic drainage of intra-abdominal abscess. This is most likely a co-diagnosis and co-cause of pt's current dx of sepsis. Gen Stary co-managing with medicine. NG to LWIS YVROSE drain to abdominal incision PRN pain meds and PRN anti-emetics. Currently NPO, and we have switched as many meds to IVP that we can. Continue to monitor VS and trend labs. Continue IVF hydration w/increased rate to 100 ml/hr Accurate I&O with Roman catheter. 24: Surgery continuing to follow and manage post-operatively. Remains currently w/NG tube, YVROSE drain, and very hypoactive bowel sounds. Today is POD #2. Continuing pain meds and anti-emetics prn. Continue IVF for hydration and accurate I&O with roman. Continue incentive spirometry. 24: General surgery following Small-bowel follow-through NGT to LIS, bilious drainage noted will likely DC this today and start clears as the upper GI series did not show any extraluminal leakage of contrast. Continue IVF Patient passing flatus today Encouraged patient to take her oral pain medications rather than using ice over incision for pain. Discussed with nursing Patient is POD #3 for laparoscopic repair of perforated duodenal ulcer with ghassan patch and laparoscopic drainage of intra-abdominal abscess. Labs sites surgical glue open to air and a YVROSE drain. (3) Right lower lobe pneumonia: Code(s): J18.9 - Pneumonia, unspecified organism Status: Acute Assessment and Plan:
--- NOTE | 2023-12-12 09:16 | PCPTNOTE ---
Attempted therapy session. Pt OOR for test.
--- NOTE | 2023-12-12 10:18 | PCPTNOTE ---
Patient refused treatment this session due to wanting to rest. Pt stated This is the most comfortable I have been all night and I just need to rest. Maybe later. I just really need my rest. Will continue per POC.
[2023-12-12] MEDS: dilTIAZem HCl INJ 25 MG/5 ML VIAL IV PUSH (10:42)
[2023-12-12] MEDS: CEFEPIME 1 GM/NS 50 ML 1 GM/50 ML BAG IVPB ×2 (10:42→21:34)
[2023-12-12] MEDS: ENOXAPARIN 30 MG/0.3 ML SYRINGE SUB-Q (10:43)
[2023-12-12] MEDS: PANTOPRAZOLE SODIUM IV 40 MG VIAL IV PUSH ×2 (10:43→20:25)
[2023-12-12] MEDS: FUROSEMIDE INJ 40 MG/4 ML VIAL 20 MG IV PUSH (10:43)
[2023-12-12] MEDS: POTASSIUM CHLORIDE INJ 40 MEQ in SODIUM CHLORIDE 0.9% IV 500 ML 130 MEQ IVPB (10:43)
[2023-12-12] MEDS: METOPROLOL TARTRATE INJ 5 MG/5 ML VIAL IV PUSH ×2 (12:42→18:00)
[2023-12-12] MEDS: SUCRALFATE SUSP 100 MG/ML 10 ML UDC 1000 MG PO ×3 (13:00→20:25)
--- NOTE | 2023-12-12 14:21 | PC.NURSE ---
IMELDA Kinney at bedside advised patient to not use ice anymore. Patient was using ice to the point that the skin was cold and patient could not feel anything instead of asking for pain medication. Encouraged patient to utilize pain medication instead of ice. Informed patient that using ice to this extreme could decrease blood flow and decrease healing.
[2023-12-12] MEDS: MICAFUNGIN SODIUM 100 MG in SODIUM CHLORIDE 0.9% IV 100 ML IVPB (14:33)
--- NOTE | 2023-12-12 16:19 | PM.PNGS ---
Progress Note: A&P Assessment and Plan (1) Perforated duodenal ulcer: Code(s): K26.5 - Chronic or unspecified duodenal ulcer with perforation Status: Acute Assessment and Plan: Continue Protonix 40 mg b.i.d., start Carafate 1 g q.i.d. today Upper GI this morning shows no contrast extravasation. NG tube removed and started on clear liquids. Continue cefepime and Flagyl, and Micafungin Continue monitoring YVROSE drain output (2) Sepsis: Code(s): A41.9 - Sepsis, unspecified organism Status: Acute (3) Thrombocytopenia: Code(s): D69.6 - Thrombocytopenia, unspecified Status: Acute Subjective Subjective Date/Time Seen: 12/12/23 16:19 Interval history: NG tube removed this morning and patient is currently on clear liquids. Tolerating liquids well. Abdominal pain improving. No fevers. Exam GI: Inspection: incision (Intact with glue) and other (YVROSE serosanguineous) GI Palp: Yes Soft to palpation, Yes Tenderness to palpation present (GI) (Incisional) and No Guarding due to palpation present (GI) Objective Data Vital Signs Vital Signs: Vital Signs - 24 hr 12/11/23 17:50 12/11/23 17:50 12/11/23 18:00 Temperature Pulse Rate 99 99 103 H Respiratory Rate Blood Pressure Pulse Oximetry Oxygen Delivery Oxygen Flow Rate 12/11/23 20:37 12/11/23 20:42 12/11/23 20:46 Temperature Pulse Rate 99 100 Respiratory Rate 18 18 Blood Pressure Pulse Oximetry 95 Oxygen Delivery Nasal Cannula Oxygen Flow Rate 1 12/11/23 20:59 12/11/23 20:00 12/11/23 20:00 Temperature 36.1 C L Pulse Rate 106 H 100 106 H Respiratory Rate 18 18 Blood Pressure 144/56 H Pulse Oximetry 95 95 Oxygen Delivery Nasal Cannula Oxygen Flow Rate 1 12/12/23 00:35 12/11/23 22:00 12/12/23 00:00 Temperature 36.2 C L Pulse Rate 107 H 102 H 129 H Respiratory Rate 16 Blood Pressure 139/58 L Pulse Oximetry 91 Oxygen Delivery Oxygen Flow Rate 12/12/23 00:00 12/12/23 02:33 12/12/23 02:43 Temperature Pulse Rate 107 H 90 86 Respiratory Rate 16 18 18 Blood Pressure Pulse Oximetry 91 Oxygen Delivery Nasal Cannula Oxygen Flow Rate 1 12/12/23 02:51 12/12/23 02:00 12/12/23 04:25 Temperature 36.1 C L Pulse Rate 119 H 104 H 109 H Respiratory Rate 95 H Blood Pressure 153/40 H Pulse Oximetry 20 L Oxygen Delivery Oxygen Flow Rate 12/12/23 04:00 12/12/23 04:00 12/12/23 06:00 Temperature Pulse Rate 106 H 109 H 106 H Respiratory Rate 95 H Blood Pressure Pulse Oximetry 20 L Oxygen Delivery Nasal Cannula Oxygen Flow Rate 1 12/12/23 08:18 12/12/23 08:32 12/12/23 08:35 Temperature 35.8 C L Pulse Rate 102 H 106 H 99 Respiratory Rate 20 18 18 Blood Pressure 155/62 H Pulse Oximetry 92 91 Oxygen Delivery Nasal Cannula Oxygen Flow Rate 1 12/12/23 08:42 12/12/23 11:40 12/12/23 12:42 Temperature 36.3 C L Pulse Rate 114 H 149 H 155 H Respiratory Rate 18 18 Blood Pressure 159/76 H Pulse Oximetry 93 Oxygen Delivery Oxygen Flow Rate 12/12/23 08:00 12/12/23 12:00 12/12/23 14:25 Temperature Pulse Rate 104 H Respiratory Rate 18 Blood Pressure Pulse Oximetry 91 93 Oxygen Delivery Nasal Cannula Nasal Cannula Oxygen Flow Rate 1 1 12/12/23 14:32 12/12/23 14:34 Temperature Pulse Rate 105 H 110 H Respiratory Rate 18 Blood Pressure Pulse Oximetry Oxygen Delivery Oxygen Flow Rate Intake/Output Intake/Output: Intake & Output 12/09/23 12/10/23 12/11/23 12/12/23 23:59 23:59 23:59 23:59 Intake Total 2590 1750 2700 2180 Output Total 1095 1685 2339 910 Balance 1495 65 361 1270 Meds/Results Medications: Active Medications Generic Name Dose Route Start Last Admin Trade Name Freq PRN Reason Stop Dose Admin Albuterol/Ipratropium 3 ml 12/09/23 02:00 12/12/23 14:24 Ipratropium 0.5 Mg/Albuterol Sulfate 2.5 Mg Ampul.Neb 3 Ml INHALA
[2023-12-12] MEDS: AZITHROMYCIN 500 MG/NS 250 ML 500 MG/250 ML BAG 250 MG IVPB (20:24)
[2023-12-13] VITALS (31 sets, daily range): BP systolic 115–130; BP diastolic 47–59; PULSE 78–109; RESP 18–20; TEMP 36.2–36.8; O2SAT 93–99
[2023-12-13 00:03] LABS: Pneumococcal Antigen Urine Not Detected (Not Detected)
[2023-12-13] MEDS: METOPROLOL TARTRATE INJ 5 MG/5 ML VIAL IV PUSH ×4 (00:50→17:55)
[2023-12-13] MEDS: metroNIDAZOLE 500 MG/ISO 100ML 500 MG/100 ML BAG 100 MG IVPB ×2 (01:05→05:47)
[2023-12-13] MEDS: IPRATROPIUM 0.5 MG/ALBUTEROL SULFATE 2.5 MG AMPUL.NEB 3 ML INHALATION ×4 (01:20→19:46)
[2023-12-13 05:33] LABS: Hematocrit 36.3 % (37.0-47.0); Hemoglobin 11.2 g/dL (12.0-15.0); Mean Corpuscular HGB Conc 30.9 g/dl (32-36); Mean Corpuscular Hemoglobin 30.9 pg (26-34); Mean Corpuscular Volume 100.3 fl (80-100); Mean Platelet Volume 11.4 fl (7.4-10.4); Platelet Count Result 153 k/mm3 (150-375); Red Blood Count 3.62 M/mm3 (4.2-5.4); Red Cell Distribution Width 15.4 % (11.5-14.5); White Blood Count 15.6 K/mm3 (4.5-10.0)
[2023-12-13 05:43] LABS: Anion Gap 1 mmol/L (8-16); Blood Urea Nitrogen 26 mg/dL (7-17); Calcium 8.2 mg/dL (8.4-10.2); Carbon Dioxide 27 mmol/L (22-30); Chloride 113 mmol/L (98-107); Estimated CRCL calculation 33 ml/min; Estimated Glomerular Filt Rate 59; Glucose 119 mg/dL (65-110); Magnesium 1.8 mg/dL (1.6-2.3); Potassium 2.8 mmol/L (3.4-5.0); Sodium 141 mmol/L (137-145)
[2023-12-13] MEDS: SUCRALFATE SUSP 100 MG/ML 10 ML UDC 1000 MG PO ×4 (05:47→22:39)
[2023-12-13] MEDS: MORPHINE SULFATE (*CRX) 2 MG/ML INJ IV PUSH ×3 (06:43→20:57)
[2023-12-13] MEDS: dilTIAZem 100 MG/100 ML 100 MG/100 ML BAG 10 MG IV CONT (06:50)
[2023-12-13] MEDS: ENOXAPARIN 30 MG/0.3 ML SYRINGE SUB-Q (09:48)
[2023-12-13] MEDS: CEFEPIME 1 GM/NS 50 ML 1 GM/50 ML BAG IVPB (09:48)
[2023-12-13] MEDS: dilTIAZem HCl INJ 25 MG/5 ML VIAL IV PUSH (09:48)
[2023-12-13] MEDS: POTASSIUM CHLORIDE INJ 40 MEQ in SODIUM CHLORIDE 0.9% IV 500 ML 130 MEQ IVPB ×2 (09:48→22:38)
[2023-12-13] MEDS: MICAFUNGIN SODIUM 100 MG in SODIUM CHLORIDE 0.9% IV 100 ML IVPB (09:49)
[2023-12-13] MEDS: PANTOPRAZOLE SODIUM IV 40 MG VIAL IV PUSH ×2 (09:49→22:39)
--- NOTE | 2023-12-13 10:15 | PM.IMPN ---
Progress Note: A&P Assessment and Plan (1) Sepsis: Code(s): A41.9 - Sepsis, unspecified organism Status: Acute Assessment and Plan: 12/09/23: Patient presented meeting sepsis criteria with leukocytosis, lactic acidosis, unknown source of infection and tachycardia. Patient started on broad-spectrum antibiotics of Rocephin and azithromycin ED in given IV fluids. Lactic acid has trended downward to 1.2. Patient not meeting shock criteria. Antibiotic therapy will be brought and from Rocephin to cefepime to cover for Pseudomonas infection. As patient has pneumonia will check Legionella as well as strep Pneumo from urine Provide supportive care with supplemental oxygenation. Wean oxygen as tolerated. Trend daily labs and vital signs. Continue DuoNebs q.6 hours Patient is full code. 12/10/23: Pt continues to meet Sepsis criteria. Etiology now GI w/perforation and abscess, CAP, or combination of both. Continuing abx at this time of Flagyl, Cefepime. We will continue to monitor her VS and her labs closely. As recommended per Gen Sgy, may consider adding an anti-fungal tomorrow if WBC is not improving. Preliminary BC negative x2, no left shift to WBC's. 12/11/23: Patient no longer meeting sepsis criteria. Tachycardia is likely the cause in the setting of patient being NPO and not being able to take her oral Cardizem. Cardizem drip was started last evening and orders for titration to 10 mg per hour is ordered this morning. Suspicion that in setting of no acute signs of sepsis other than heart rate patient's tachycardia is due to atrial fibrillation. Continuing current antibiotics of Flagyl, cefepime and azithromycin to cover abdominal infection as well as right middle lobe and lower lobe pneumonia. Cultures remain without any growth. There is interval improved leukocytosis with WBCs this morning of 20K and no left shift. Will defer adding antifungal to medication regimen as suggested by surgery if there was no improvement in her Leukocytosis today, as the pt appears to have had interval improvement overnight. 12/12/23: No change to current treatment plan (2) Perforated duodenal ulcer: Code(s): K26.5 - Chronic or unspecified duodenal ulcer with perforation Status: Acute Assessment and Plan: 12/10/23: Acute perforation on 12/09/23 requiring emergent intervention by Dr. Singh. Today is POD #1 from a Laparoscopic repair of perforated duodenal ulcer with omental ghassan patch and laparoscopic drainage of intra-abdominal abscess. This is most likely a co-diagnosis and co-cause of pt's current dx of sepsis. Gen Stary co-managing with medicine. NG to LWIS YVROSE drain to abdominal incision PRN pain meds and PRN anti-emetics. Currently NPO, and we have switched as many meds to IVP that we can. Continue to monitor VS and trend labs. Continue IVF hydration w/increased rate to 100 ml/hr Accurate I&O with Roman catheter. 12/11/23: Surgery continuing to follow and manage post-operatively. Remains currently w/NG tube, YVROSE drain, and very hypoactive bowel sounds. Today is POD #2. Continuing pain meds and anti-emetics prn. Continue IVF for hydration and accurate I&O with roman. Continue incentive spirometry. 12/12/23: General surgery following Small-bowel follow-through NGT to LIS, bilious drainage noted will likely DC this today and start clears as the upper GI series did not show any extraluminal leakage of contrast. Continue IVF Patient passing flatus today Encouraged patient to take her oral pain medications rather than using ice over incision for pain. Discussed with nursing Patient is POD #3 for laparoscopic repair of perforated duodenal ulcer with ghassan patch and laparoscopic drainage of intra-abdominal abscess. Labs sites surgical glue open to air and a YVROSE drain. 12/13/23: Postop day 4 General surgery following NG tube continued yesterday, patient was started on clears and is tolerating that
[2023-12-13] MEDS: dilTIAZem HCL CD 240 MG CAP.24HR PO (14:07)
[2023-12-13] MEDS: metroNIDAZOLE 500 MG TABLET PO ×2 (14:08→22:39)
--- NOTE | 2023-12-13 14:15 | PM.PNGS ---
Progress Note: A&P Assessment and Plan (1) Perforated duodenal ulcer: Code(s): K26.5 - Chronic or unspecified duodenal ulcer with perforation Status: Acute Assessment and Plan: Continue Protonix 40 mg b.i.d. and Carafate 1 g q.i.d. Advance to full liquids, will add Ensure supplements Continue cefepime and Flagyl, and Micafungin. WBC trending down. Continue monitoring YVROSE drain output (2) Sepsis: Code(s): A41.9 - Sepsis, unspecified organism Status: Acute (3) Thrombocytopenia: Code(s): D69.6 - Thrombocytopenia, unspecified Status: Resolved Plan I have discussed the patient's case and plan of care with Dr. Singh. Subjective Subjective Date/Time Seen: 12/13/23 14:15 Post Op day: 4 (Laparoscopic repair of perforated duodenal ulcer with omental Marc patch, laparoscopic drainage of intra-abdominal abscess) Patient reports: no new complaints, feels better, pain is less, tolerating liquids well, flatus, bowel movement (Today) and afebrile Interval history: Tolerating clear liquids. Reports her abdominal pain has continued to slowly improve. Her diltiazem infusion is being switched to oral pills. Exam GI: Inspection: non-distended, incision (Intact with glue) and other (YVROSE serosanguineous) GI Palp: Yes Soft to palpation, Yes Tenderness to palpation present (GI) (Incisional) and No Guarding due to palpation present (GI) Auscultation: normal bowel sounds Urinary Catheter: Urinary Catheter: patent and draining and urine dark Objective Data Vital Signs Vital Signs: Vital Signs - 24 hr 12/12/23 14:25 12/12/23 14:32 12/12/23 14:34 Temperature Pulse Rate 104 H 105 H 110 H Respiratory Rate 18 18 Blood Pressure Pulse Oximetry Oxygen Delivery Oxygen Flow Rate 12/12/23 16:20 12/12/23 16:00 12/12/23 18:00 Temperature 97.4 F L Pulse Rate 108 H 114 H Respiratory Rate 18 Blood Pressure 151/73 H Pulse Oximetry 94 Oxygen Delivery Nasal Cannula Oxygen Flow Rate 2 12/12/23 16:00 12/12/23 16:00 12/12/23 18:00 Temperature Pulse Rate 108 H 116 H Respiratory Rate Blood Pressure Pulse Oximetry 94 Oxygen Delivery Nasal Cannula Oxygen Flow Rate 2 12/12/23 20:13 12/12/23 20:14 12/12/23 20:33 Temperature Pulse Rate 91 91 95 Respiratory Rate 18 18 18 Blood Pressure Pulse Oximetry 95 Oxygen Delivery Nasal Cannula Oxygen Flow Rate 2 12/12/23 20:24 12/12/23 20:24 12/12/23 20:40 Temperature 97.9 F Pulse Rate 96 96 96 Respiratory Rate 18 Blood Pressure 135/53 L Pulse Oximetry 96 Oxygen Delivery Oxygen Flow Rate 12/12/23 23:23 12/13/23 01:20 12/13/23 01:29 Temperature 97.7 F Pulse Rate 95 94 91 Respiratory Rate 18 18 18 Blood Pressure 116/52 L Pulse Oximetry 92 Oxygen Delivery Oxygen Flow Rate 12/12/23 20:00 12/12/23 22:00 12/13/23 00:00 Temperature Pulse Rate 92 90 92 Respiratory Rate Blood Pressure Pulse Oximetry Oxygen Delivery Oxygen Flow Rate 12/13/23 02:00 12/13/23 03:40 12/13/23 04:00 Temperature 97.8 F Pulse Rate 91 82 85 Respiratory Rate 18 Blood Pressure 120/58 L Pulse Oximetry 96 Oxygen Delivery Oxygen Flow Rate 12/13/23 00:50 12/13/23 05:47 12/13/23 05:53 Temperature Pulse Rate 85 93 91 Respiratory Rate Blood Pressure Pulse Oximetry Oxygen Delivery Oxygen Flow Rate 12/13/23 06:24 12/13/23 08:16 12/13/23 08:16 Temperature Pulse Rate 99 81 Respiratory Rate 20 Blood Pressure Pulse Oximetry 95 Oxygen Delivery Nasal Cannula Oxygen Flow Rate 2 12/13/23 08:24 12/13/23 08:48 12/13/23 08:00 Temperature 97.2 F L Pulse Rate 83 80 78 Respiratory Rate 20 20 Blood Pressure 124/50 L Pulse Oximetry 98 Oxygen Delivery Oxygen Flow Rate 12/13/23 11:25 12/13/23 11:58 12/13/23 13:07 Temperature 98.3 F Pulse Rate 94 94 87 Respiratory Rate 20 20
[2023-12-13] MEDS: POTASSIUM CHLORIDE 20 MEQ ER TABLET PO (17:55)
--- NOTE | 2023-12-13 20:12 | PC.NURSE ---
On 12/13/23, the student, [IRVING Salazar ], provided care and completed [employer] documentation on this patient. I have reviewed the student's documentation and agree with the findings except the noon neuro assessment. Additional neuro comments say that the patient returned from PACU. This was a recall, the patient did not go to PACU on this day.
[2023-12-13] MEDS: AMOXICILLIN/CLAVULANATE K 875-125 MG TAB 1 TABLET PO (20:46)
[2023-12-14] VITALS (28 sets, daily range): BP systolic 113–132; BP diastolic 61–84; PULSE 87–112; RESP 14–22; TEMP 36.2–36.9; O2SAT 93–100
[2023-12-14] MEDS: METOPROLOL TARTRATE INJ 5 MG/5 ML VIAL IV PUSH ×3 (00:52→13:07)
[2023-12-14] MEDS: MORPHINE SULFATE (*CRX) 2 MG/ML INJ IV PUSH ×2 (00:53→06:07)
[2023-12-14] MEDS: IPRATROPIUM 0.5 MG/ALBUTEROL SULFATE 2.5 MG AMPUL.NEB 3 ML INHALATION ×4 (01:52→21:32)
[2023-12-14 02:24] LABS: Legionella pneumophila Ag Ur Not Detected (Not Detected)
[2023-12-14 04:42] LABS: Basophils Percent Auto 0.2 % (0.2-1.2); Eosinophils Percent Auto 0.1 % (0-4.4); Hematocrit 36.9 % (37.0-47.0); Hemoglobin 11.3 g/dL (12.0-15.0); Immature Granulocyte Absolute 0.24 K/mm3 (0.00-0.031); Immature Granulocyte Percent A 1.4 % (0-0.5); Lymphocytes Absolute Auto 1.27 K/mm3 (0.9-3.2); Lymphocytes Percent Auto 7.6 % (18.3-44.2); Mean Corpuscular HGB Conc 30.6 g/dl (32-36); Mean Corpuscular Volume 101.4 fl (80-100); Mean Platelet Volume 11.7 fl (7.4-10.4); Monocytes Absolute Auto 1.4 K/mm3 (0.1-0.6); Monocytes Percent Auto 8.1 % (2.6-8.5); Neutrophils Absolute Auto 13.8 K/mm3 (1.3-6.7); Neutrophils Percent Auto 82.6 % (45.5-73.1); Platelet Count Result 166 k/mm3 (150-375); Red Blood Count 3.64 M/mm3 (4.2-5.4); Red Cell Distribution Width 15.9 % (11.5-14.5); White Blood Count 16.7 K/mm3 (4.5-10.0)
[2023-12-14 04:59] LABS: Alanine Aminotransferase 28 U/L (6-35); Albumin Level 2.2 g/dL (3.5-5.1); Alkaline Phosphatase 139 U/L (38-126); Anion Gap 3 mmol/L (8-16); Aspartate Amino Transferase 35 U/L (14-36); Bilirubin,Total 0.6 mg/dL (0.2-1.3); Blood Urea Nitrogen 19 mg/dL (7-17); Calcium 8.1 mg/dL (8.4-10.2); Carbon Dioxide 22 mmol/L (22-30); Chloride 114 mmol/L (98-107); Estimated CRCL calculation 37 ml/min; Estimated Glomerular Filt Rate > 60; Glucose 138 mg/dL (65-110); Potassium 4.8 mmol/L (3.4-5.0); Sodium 139 mmol/L (137-145)
[2023-12-14] MEDS: metroNIDAZOLE 500 MG TABLET PO ×3 (06:04→21:01)
[2023-12-14] MEDS: SUCRALFATE SUSP 100 MG/ML 10 ML UDC 1000 MG PO ×4 (06:05→21:01)
[2023-12-14] MEDS: KCL 40 MEQ/0.9% SOD CHL 1,000 ML 100 ML IV CONT ×2 (06:12→06:15)
[2023-12-14] MEDS: dilTIAZem HCL CD 240 MG CAP.24HR PO (09:02)
[2023-12-14] MEDS: FUROSEMIDE 40 MG TABLET PO (09:03)
[2023-12-14] MEDS: AMOXICILLIN/CLAVULANATE K 875-125 MG TAB 1 TABLET PO ×2 (09:03→21:01)
[2023-12-14] MEDS: ENOXAPARIN 30 MG/0.3 ML SYRINGE SUB-Q (09:03)
[2023-12-14] MEDS: FLUCONAZOLE 100 MG TABLET 200 MG PO (09:03)
[2023-12-14] MEDS: PANTOPRAZOLE SODIUM IV 40 MG VIAL IV PUSH (09:03)
--- NOTE | 2023-12-14 09:34 | PCOTNOTE ---
Patient refused treatment this session due feeling to tired. Patient reported to come back after lunch.
[2023-12-14] MEDS: FLUTICASONE/UMECLIDIN/VILANTER 100-62.5-25 MCG ELLIPTA 1 PUFF INHALATION (10:44)
--- NOTE | 2023-12-14 11:44 | PM.PNGS ---
Progress Note: A&P Assessment and Plan (1) Perforated duodenal ulcer: Code(s): K26.5 - Chronic or unspecified duodenal ulcer with perforation Status: Acute Assessment and Plan: Continue Protonix 40 mg b.i.d. and Carafate 1 g q.i.d. Advance to regular diet, will add Ensure supplements Continue cefepime and Flagyl, and Micafungin. YVROSE out today Hopefully home in the next 1-2 days if medically stable (2) Sepsis: Code(s): A41.9 - Sepsis, unspecified organism Status: Acute (3) Thrombocytopenia: Code(s): D69.6 - Thrombocytopenia, unspecified Status: Resolved Subjective Subjective Date/Time Seen: 12/14/23 11:44 Interval history: Tolerating liquid diet. Bowels moved yesterday. Minimal abdominal pain. No fevers. Exam GI: Inspection: non-distended, incision (intact with glue) and other (YVROSE minimal serous) GI Palp: Yes Soft to palpation, No Tenderness to palpation present (GI) and No Guarding due to palpation present (GI) Objective Data Vital Signs Vital Signs: Vital Signs - 24 hr 12/13/23 11:58 12/13/23 13:07 12/13/23 13:15 Temperature Pulse Rate 94 87 85 Respiratory Rate 20 20 Blood Pressure Pulse Oximetry Oxygen Delivery Oxygen Flow Rate Fraction of Inspired Oxygen 12/13/23 12:00 12/13/23 15:30 12/13/23 17:55 Temperature 36.8 C Pulse Rate 98 100 99 Respiratory Rate 20 20 Blood Pressure 130/56 L Pulse Oximetry 98 98 Oxygen Delivery Nasal Cannula Oxygen Flow Rate 1 Fraction of Inspired Oxygen 12/13/23 19:46 12/13/23 19:46 12/13/23 19:56 Temperature Pulse Rate 88 95 Respiratory Rate 20 20 Blood Pressure Pulse Oximetry 99 Oxygen Delivery Nasal Cannula Oxygen Flow Rate 2 Fraction of Inspired Oxygen 12/13/23 16:00 12/13/23 12:00 12/13/23 14:00 Temperature Pulse Rate 91 92 Respiratory Rate Blood Pressure Pulse Oximetry 98 Oxygen Delivery Nasal Cannula Oxygen Flow Rate 1 Fraction of Inspired Oxygen 12/13/23 18:00 12/13/23 20:37 12/13/23 21:21 Temperature 36.5 C Pulse Rate 100 109 H Respiratory Rate 20 Blood Pressure 115/59 L Pulse Oximetry 93 94 Oxygen Delivery Room Air Oxygen Flow Rate Fraction of Inspired Oxygen 12/13/23 20:00 12/13/23 20:00 12/14/23 00:01 Temperature 36.4 C L Pulse Rate 109 H 100 97 Respiratory Rate 20 20 Blood Pressure 113/61 Pulse Oximetry 94 100 Oxygen Delivery Nasal Cannula Oxygen Flow Rate 1 Fraction of Inspired Oxygen 12/14/23 00:52 12/13/23 22:00 12/14/23 00:00 Temperature Pulse Rate 102 H 103 H 102 H Respiratory Rate 20 Blood Pressure Pulse Oximetry 100 Oxygen Delivery Nasal Cannula Oxygen Flow Rate 1 Fraction of Inspired Oxygen 12/14/23 01:53 12/14/23 02:03 12/14/23 00:00 Temperature Pulse Rate 90 93 97 Respiratory Rate 20 20 Blood Pressure Pulse Oximetry Oxygen Delivery Oxygen Flow Rate Fraction of Inspired Oxygen 12/14/23 02:19 12/14/23 04:40 12/14/23 04:00 Temperature 36.4 C Pulse Rate 106 H 111 H 111 H Respiratory Rate 20 20 Blood Pressure 124/64 Pulse Oximetry 94 94 Oxygen Delivery Nasal Cannula Oxygen Flow Rate 1 Fraction of Inspired Oxygen 12/14/23 04:00 12/14/23 06:05 12/14/23 06:47 Temperature Pulse Rate 104 H 106 H 98 Respiratory Rate Blood Pressure Pulse Oximetry Oxygen Delivery Oxygen Flow Rate Fraction of Inspired Oxygen 12/14/23 08:29 12/14/23 08:36 12/14/23 08:36 Temperature 36.8 C Pulse Rate 104 H 105 H 105 H Respiratory Rate 16 14 Blood Pressure 121/73 Pulse Oximetry 93 94 Oxygen Delivery Nasal Cannula Oxygen Flow Rate 1 Fraction of Inspired Oxygen 12/14/23 08:41 Temperature Pulse Rate 107 H Respiratory Rate 14 Blood Pressure Pulse Oximetry Oxygen Delivery Oxygen Flow Rate Fraction of Inspired Oxygen Intake/Output Intake/Output:
--- NOTE | 2023-12-14 12:59 | PCOTNOTE ---
Patient refused treatment this session. Came back after lunch per patient request. Patient refused stating she is to tired and wanted to sleep.
[2023-12-14] MEDS: MORPHINE SULFATE (*CRX) 4 MG/ML INJ IV PUSH (13:17)
--- NOTE | 2023-12-14 13:23 | P.PNIM_ITS ---
Progress Note: A&P Assessment and Plan (1) Sepsis: Code(s): A41.9 - Sepsis, unspecified organism Status: Acute Assessment and Plan: 12/09/23: * Patient presented meeting sepsis criteria with leukocytosis, lactic acidosis, unknown source of infection and tachycardia. * Patient started on broad-spectrum antibiotics of Rocephin and azithromycin ED in given IV fluids. * Lactic acid has trended downward to 1.2. * Patient not meeting shock criteria. * Antibiotic therapy will be brought and from Rocephin to cefepime to cover for Pseudomonas infection. * As patient has pneumonia will check Legionella as well as strep Pneumo from urine * Provide supportive care with supplemental oxygenation. * Wean oxygen as tolerated. * Trend daily labs and vital signs. * Continue DuoNebs q.6 hours * Patient is full code. 12/10/23: * Pt continues to meet Sepsis criteria. Etiology now GI w/perforation and abscess, CAP, or combination of both. Continuing abx at this time of Flagyl, Cefepime. We will continue to monitor her VS and her labs closely. As recommended per Gen Sgy, may consider adding an anti-fungal tomorrow if WBC is not improving. Preliminary BC negative x2, no left shift to WBC's. 12/11/23: * Patient no longer meeting sepsis criteria. Tachycardia is likely the cause in the setting of patient being NPO and not being able to take her oral Cardizem. Cardizem drip was started last evening and orders for titration to 10 mg per hour is ordered this morning. Suspicion that in setting of no acute signs of sepsis other than heart rate patient's tachycardia is due to atrial fibrillation. Continuing current antibiotics of Flagyl, cefepime and azithromycin to cover abdominal infection as well as right middle lobe and lower lobe pneumonia. Cultures remain without any growth. There is interval improved leukocytosis with WBCs this morning of 20K and no left shift. Will defer adding antifungal to medication regimen as suggested by surgery if there was no improvement in her Leukocytosis today, as the pt appears to have had interval improvement overnight. 12/12/23: * No change to current treatment plan * Blood culture showing no growth on final read (2) Perforated duodenal ulcer: Code(s): K26.5 - Chronic or unspecified duodenal ulcer with perforation Status: Acute Assessment and Plan: 12/10/23: * Acute perforation on 12/09/23 requiring emergent intervention by Dr. Singh. * Today is POD #1 from a Laparoscopic repair of perforated duodenal ulcer with omental ghassan patch and laparoscopic drainage of intra-abdominal abscess. * This is most likely a co-diagnosis and co-cause of pt's current dx of sepsis. * Gen Gravesy co-managing with medicine. * NG to LWIS * YVROSE drain to abdominal incision * PRN pain meds and PRN anti-emetics. * Currently NPO, and we have switched as many meds to IVP that we can. * Continue to monitor VS and trend labs. * Continue IVF hydration w/increased rate to 100 ml/hr * Accurate I&O with Roman catheter. 12/11/23: * Surgery continuing to follow and manage post-operatively. Remains currently w/NG tube, YVROSE drain, and very hypoactive bowel sounds. Today is POD #2. Continuing pain meds and anti-emetics prn. Continue IVF for hydration and accurate I&O with roman. Continue incentive spirometry. 12/12/23: * General surgery following * Small-bowel follow-through * NGT to LIS, bilious drainage noted will likely DC this today and start clears as the upper GI series did not show any extraluminal leakage of contrast. * Continue IVF * Patient passing flatus today * Encouraged patient to take her oral pa
--- NOTE | 2023-12-14 15:18 | PCPTNOTE ---
The patient treatment was not able to be completed this afternoon due to patient sleeping soundly per nursing and will have drain removed. Will plan to continue treatment per plan of care.
[2023-12-14] MEDS: METOPROLOL TARTRATE 50 MG TAB PO (17:31)
[2023-12-14] MEDS: POTASSIUM CHLORIDE 20 MEQ ER TABLET PO (17:32)
[2023-12-14] MEDS: PANTOPRAZOLE 40 MG TABLET PO (21:01)
[2023-12-15] VITALS (18 sets, daily range): BP systolic 107–155; BP diastolic 52–92; PULSE 80–124; RESP 17–22; TEMP 36.1–36.4; O2SAT 90–99
[2023-12-15 04:36] LABS: Hematocrit 38.1 % (37.0-47.0); Hemoglobin 11.8 g/dL (12.0-15.0); Mean Corpuscular Hemoglobin 31.1 pg (26-34); Mean Corpuscular Volume 100.3 fl (80-100); Mean Platelet Volume 11.6 fl (7.4-10.4); Platelet Count Result 190 k/mm3 (150-375); Red Cell Distribution Width 16.2 % (11.5-14.5); White Blood Count 17.9 K/mm3 (4.5-10.0)
[2023-12-15] MEDS: metroNIDAZOLE 500 MG TABLET PO ×3 (04:37→21:19)
[2023-12-15] MEDS: SUCRALFATE SUSP 100 MG/ML 10 ML UDC 1000 MG PO (04:37)
--- NOTE | 2023-12-15 08:45 | PCOTNOTE ---
Attempted to see Patient at this time. Upon entering the room Patient seated on the bedside commode. Patient verbalized she is not participating in therapy, she is going to bed. Patient stated, I'm not doing anything but sleeping .
[2023-12-15] MEDS: IPRATROPIUM 0.5 MG/ALBUTEROL SULFATE 2.5 MG AMPUL.NEB 3 ML INHALATION ×3 (09:09→20:14)
[2023-12-15] MEDS: FLUTICASONE/UMECLIDIN/VILANTER 100-62.5-25 MCG ELLIPTA 1 PUFF INHALATION (09:09)
--- NOTE | 2023-12-15 10:20 | PCNFU ---
Nutrition Follow-Up Complete: Inadequate Oral Intake as related to CHF as evidenced by poor po noted. Goal: Adequate Intake of at least 75% of meals/supplements - Not meeting goal. Continue with same goal Pt current nutrition is Regular diet. Ensure Clear BID for additional 240 kcal and 8 g protein each. Nutrition recommendation: Last recorded weight is 54.8 kg. Bowel Motility: +4 BMs yesterday 12/14/23 Labs Reviewed: 12/15: Hgb 11.8. 12/14: Alb 2.2, BUN 19. Meds Noted: Zofran, protonix, Lasix Skin: No pressure injury Additional Notes: Just advanced from liquids 12/13/23 and still not much appetite. Drain is out. 10% Dinner, 20% breakfast on regular diet. No intakes noted on Ensure Clear. Pt was sleeping when seen. RD will monitor, weight, labs, skin, oral intake, meds every 5 days.
[2023-12-15] MEDS: AMOXICILLIN/CLAVULANATE K 875-125 MG TAB 1 TABLET PO ×2 (10:24→21:19)
[2023-12-15] MEDS: ENOXAPARIN 30 MG/0.3 ML SYRINGE SUB-Q (10:25)
[2023-12-15] MEDS: dilTIAZem HCL CD 240 MG CAP.24HR PO (10:25)
[2023-12-15] MEDS: METOPROLOL TARTRATE 50 MG TAB PO ×2 (10:25→21:19)
[2023-12-15] MEDS: FUROSEMIDE 40 MG TABLET PO (10:25)
[2023-12-15] MEDS: FLUCONAZOLE 100 MG TABLET 200 MG PO (10:25)
[2023-12-15] MEDS: PANTOPRAZOLE 40 MG TABLET PO ×2 (10:26→21:19)
[2023-12-15] MEDS: POTASSIUM CHLORIDE 20 MEQ ER TABLET PO (10:26)
--- NOTE | 2023-12-15 11:18 | PC.NURSE ---
Spent time with patient discussing how she doesn't want to participate in any therapy. RN tried to convince patient to sit in chair for lunch, patient refused. [place] [facility] [place] Patient was barely able to stand with assistance and a walker. Discussed with patient how weak she is from refusing therapy this morning, she stated she did not care. Patient stated she just wants to go to a prison, she is done with living.
--- NOTE | 2023-12-15 13:00 | PCOTNOTE ---
Patient attempted again this afternoon. Patient stated, I'm 88, I don't want to and don't have to . Therapist verbalized the importance of movement and participation. Patient stated, I don't care, send me to a assisted, I'm done . RN notified and aware. Therapist also had a discussion with Patient's son in-law.
--- NOTE | 2023-12-15 14:17 | PM.PNGS ---
Progress Note: A&P Assessment and Plan (1) Perforated duodenal ulcer: Code(s): K26.5 - Chronic or unspecified duodenal ulcer with perforation Status: Acute Assessment and Plan: Continue Protonix 40 mg b.i.d. and Carafate 1 g q.i.d. Continue regular diet with supplements. Encourage PO intake IV antibiotics switched to Augmentin and oral fluconazole on 12/13. (2) Sepsis: Code(s): A41.9 - Sepsis, unspecified organism Status: Acute (3) Thrombocytopenia: Code(s): D69.6 - Thrombocytopenia, unspecified Status: Resolved Subjective Subjective Date/Time Seen: 12/15/23 14:17 Patient reports: flatus, bowel movement and afebrile Interval history: Patient doing well today. She states she continues to feel better daily. Denies any abdominal pain, nausea, or vomiting. She has had 2 BMs today. She reports poor appetite, but is taking in her supplements. No other specific complaints at this time. Exam Const: General: alert; No acute distress Orientation/consciousness: patient oriented x3 GI: Inspection: non-distended and incision (intact with glue) GI Palp: Yes Soft to palpation, Yes Tenderness to palpation present (GI) (incisional) and No Guarding due to palpation present (GI) Auscultation: normal bowel sounds Objective Data Vital Signs Vital Signs: Vital Signs - 24 hr 12/14/23 14:34 12/14/23 14:40 12/14/23 16:19 Temperature 98.0 F Pulse Rate 100 106 H 100 Respiratory Rate 18 18 17 Blood Pressure 127/64 Pulse Oximetry 93 Oxygen Delivery Oxygen Flow Rate 12/14/23 17:31 12/14/23 16:00 12/14/23 20:16 Temperature 97.1 F L Pulse Rate 110 H 110 H 98 Respiratory Rate 18 Blood Pressure 130/84 Pulse Oximetry 98 Oxygen Delivery Oxygen Flow Rate 12/14/23 21:32 12/14/23 21:34 12/14/23 21:41 Temperature Pulse Rate 91 91 87 Respiratory Rate 18 18 Blood Pressure Pulse Oximetry 95 Oxygen Delivery Nasal Cannula Oxygen Flow Rate 1 12/14/23 22:28 12/14/23 20:00 12/15/23 00:02 Temperature 97.6 F Pulse Rate 95 93 Respiratory Rate 18 Blood Pressure 131/76 Pulse Oximetry 95 94 Oxygen Delivery Nasal Cannula Oxygen Flow Rate 1 12/15/23 00:00 12/15/23 04:00 12/15/23 07:29 Temperature 97.1 F L Pulse Rate 104 H 102 H 113 H Respiratory Rate 22 H Blood Pressure 155/92 H Pulse Oximetry 92 Oxygen Delivery Oxygen Flow Rate 12/15/23 09:10 12/15/23 09:21 12/15/23 10:25 Temperature Pulse Rate 80 83 124 H Respiratory Rate 17 17 Blood Pressure Pulse Oximetry Oxygen Delivery Oxygen Flow Rate 12/15/23 08:00 12/15/23 08:00 12/15/23 13:58 Temperature Pulse Rate 113 H 85 Respiratory Rate 20 Blood Pressure Pulse Oximetry 92 Oxygen Delivery Nasal Cannula Oxygen Flow Rate 1 12/15/23 14:05 Temperature Pulse Rate 93 Respiratory Rate 20 Blood Pressure Pulse Oximetry Oxygen Delivery Oxygen Flow Rate Intake/Output Intake/Output: Intake & Output 12/12/23 12/13/23 12/14/23 12/15/23 23:59 23:59 23:59 23:59 Intake Total 3540 1620 2540 540 Output Total 3217 487 7803 300 Balance 2190 655 186 240 Meds/Results Medications: Active Medications Generic Name Dose Route Start Last Admin Trade Name Freq PRN Reason Stop Dose Admin Albuterol/Ipratropium 3 ml 12/09/23 02:00 12/15/23 13:58 Ipratropium 0.5 Mg/Albuterol Sulfate 2.5 Mg Ampul.Neb 3 Ml INHALATION 3 ml Q6HRT LILLIAN Administration Amoxicillin/Clavulanate Potassium 1 tablet 12/13/23 21:00 12/15/23 10:24 Amoxicillin/Clavulanate K 875-125 Mg Tab PO 12/17/23 23:59 1 tablet Q12HR LILLIAN Administration Diltiazem HCl 240 mg 12/13/23 13:40 12/15/23 10:25 Diltiazem Hcl Cd 240 Mg Cap.24hr PO 240 mg QAM LILLIAN Administration Enoxaparin Sodium 30 mg 12/10/23 09:00 12/15/23 10:25 Enoxaparin 30 Mg/0.3 Ml Syringe SUB-Q 30 mg DAILY LILLIAN Administration Fluconazole 200 mg 12/01
--- NOTE | 2023-12-15 16:39 | P.PNIM_ITS ---
Progress Note: A&P Assessment and Plan (1) Sepsis: Code(s): A41.9 - Sepsis, unspecified organism Status: Acute Assessment and Plan: 12/09/23: * Patient presented meeting sepsis criteria with leukocytosis, lactic acidosis, unknown source of infection and tachycardia. * Patient started on broad-spectrum antibiotics of Rocephin and azithromycin ED in given IV fluids. * Lactic acid has trended downward to 1.2. * Patient not meeting shock criteria. * Antibiotic therapy will be brought and from Rocephin to cefepime to cover for Pseudomonas infection. * As patient has pneumonia will check Legionella as well as strep Pneumo from urine * Provide supportive care with supplemental oxygenation. * Wean oxygen as tolerated. * Trend daily labs and vital signs. * Continue DuoNebs q.6 hours * Patient is full code. 12/10/23: * Pt continues to meet Sepsis criteria. Etiology now GI w/perforation and abscess, CAP, or combination of both. Continuing abx at this time of Flagyl, Cefepime. We will continue to monitor her VS and her labs closely. As recommended per Gen Sgy, may consider adding an anti-fungal tomorrow if WBC is not improving. Preliminary BC negative x2, no left shift to WBC's. 12/11/23: * Patient no longer meeting sepsis criteria. Tachycardia is likely the cause in the setting of patient being NPO and not being able to take her oral Cardizem. Cardizem drip was started last evening and orders for titration to 10 mg per hour is ordered this morning. Suspicion that in setting of no acute signs of sepsis other than heart rate patient's tachycardia is due to atrial fibrillation. Continuing current antibiotics of Flagyl, cefepime and azithromycin to cover abdominal infection as well as right middle lobe and lower lobe pneumonia. Cultures remain without any growth. There is interval improved leukocytosis with WBCs this morning of 20K and no left shift. Will defer adding antifungal to medication regimen as suggested by surgery if there was no improvement in her Leukocytosis today, as the pt appears to have had interval improvement overnight. 12/12/23 - 12/15/23 * No change to current treatment plan * Blood culture showing no growth on final read * continue Metronidazole, Augmentin (2) Perforated duodenal ulcer: Code(s): K26.5 - Chronic or unspecified duodenal ulcer with perforation Status: Acute Assessment and Plan: 12/10/23: * Acute perforation on 12/09/23 requiring emergent intervention by Dr. Singh. * Today is POD #1 from a Laparoscopic repair of perforated duodenal ulcer with omental ghassan patch and laparoscopic drainage of intra-abdominal abscess. * This is most likely a co-diagnosis and co-cause of pt's current dx of sepsis. * Gen Sgy co-managing with medicine. * NG to LWIS * YVROSE drain to abdominal incision * PRN pain meds and PRN anti-emetics. * Currently NPO, and we have switched as many meds to IVP that we can. * Continue to monitor VS and trend labs. * Continue IVF hydration w/increased rate to 100 ml/hr * Accurate I&O with Roman catheter. 12/11/23: * Surgery continuing to follow and manage post-operatively. Remains currently w/NG tube, YVROSE drain, and very hypoactive bowel sounds. Today is POD #2. Continuing pain meds and anti-emetics prn. Continue IVF for hydration and accu rate I&O with roman. Continue incentive spirometry. 12/12/23: * General surgery following * Small-bowel follow-through * NGT to LIS, bilious drainage noted will likely DC this today and start clears as the upper GI series did not show any extraluminal leakage of contrast. * Continue IVF * Patient passing flatus t
--- NOTE | 2023-12-15 16:39 | PM.IMPN ---
Progress Note: A&P Assessment and Plan (1) Sepsis: Code(s): A41.9 - Sepsis, unspecified organism Status: Acute Assessment and Plan: 12/09/23: Patient presented meeting sepsis criteria with leukocytosis, lactic acidosis, unknown source of infection and tachycardia. Patient started on broad-spectrum antibiotics of Rocephin and azithromycin ED in given IV fluids. Lactic acid has trended downward to 1.2. Patient not meeting shock criteria. Antibiotic therapy will be brought and from Rocephin to cefepime to cover for Pseudomonas infection. As patient has pneumonia will check Legionella as well as strep Pneumo from urine Provide supportive care with supplemental oxygenation. Wean oxygen as tolerated. Trend daily labs and vital signs. Continue DuoNebs q.6 hours Patient is full code. 12/10/23: Pt continues to meet Sepsis criteria. Etiology now GI w/perforation and abscess, CAP, or combination of both. Continuing abx at this time of Flagyl, Cefepime. We will continue to monitor her VS and her labs closely. As recommended per Gen Sgy, may consider adding an anti-fungal tomorrow if WBC is not improving. Preliminary BC negative x2, no left shift to WBC's. 12/11/23: Patient no longer meeting sepsis criteria. Tachycardia is likely the cause in the setting of patient being NPO and not being able to take her oral Cardizem. Cardizem drip was started last evening and orders for titration to 10 mg per hour is ordered this morning. Suspicion that in setting of no acute signs of sepsis other than heart rate patient's tachycardia is due to atrial fibrillation. Continuing current antibiotics of Flagyl, cefepime and azithromycin to cover abdominal infection as well as right middle lobe and lower lobe pneumonia. Cultures remain without any growth. There is interval improved leukocytosis with WBCs this morning of 20K and no left shift. Will defer adding antifungal to medication regimen as suggested by surgery if there was no improvement in her Leukocytosis today, as the pt appears to have had interval improvement overnight. 12/12/23 - 12/15/23 No change to current treatment plan Blood culture showing no growth on final read continue Metronidazole, Augmentin (2) Perforated duodenal ulcer: Code(s): K26.5 - Chronic or unspecified duodenal ulcer with perforation Status: Acute Assessment and Plan: 12/10/23: Acute perforation on 12/09/23 requiring emergent intervention by Dr. Singh. Today is POD #1 from a Laparoscopic repair of perforated duodenal ulcer with omental ghassan patch and laparoscopic drainage of intra-abdominal abscess. This is most likely a co-diagnosis and co-cause of pt's current dx of sepsis. Gen Sgy co-managing with medicine. NG to LWIS YVROSE drain to abdominal incision PRN pain meds and PRN anti-emetics. Currently NPO, and we have switched as many meds to IVP that we can. Continue to monitor VS and trend labs. Continue IVF hydration w/increased rate to 100 ml/hr Accurate I&O with Roman catheter. 12/11/23: Surgery continuing to follow and manage post-operatively. Remains currently w/NG tube, YVROSE drain, and very hypoactive bowel sounds. Today is POD #2. Continuing pain meds and anti-emetics prn. Continue IVF for hydration and accurate I&O with roman. Continue incentive spirometry. 12/12/23: General surgery following Small-bowel follow-through NGT to LIS, bilious drainage noted will likely DC this today and start clears as the upper GI series did not show any extraluminal leakage of contrast. Continue IVF Patient passing flatus today Encouraged patient to take her oral pain medications rather than using ice over incision for pain. Discussed with nursing Patient is POD #3 for laparoscopic repair of perforated duodenal ulcer with ghassan patch and laparoscopic drainage of intra-abdominal abscess. Labs sites surgical glue open to air and a YVROSE drain. 12/13/23: Postop day 4 General surgery f
--- NOTE | 2023-12-15 23:15 | PC.NURSE ---
This patient, Leslee Mota, was transferred to [facility] on 12/15/23 at 2315. Personal belongings sent with patient. Report given to ELMER Winter. Appropriate documentation sent with patient.
[2023-12-16] VITALS (14 sets, daily range): BP systolic 102; BP diastolic 63; PULSE 84–130; RESP 18–28; TEMP 37.1; O2SAT 90–93
[2023-12-16] MEDS: IPRATROPIUM 0.5 MG/ALBUTEROL SULFATE 2.5 MG AMPUL.NEB 3 ML INHALATION ×4 (02:20→20:46)
[2023-12-16] MEDS: metroNIDAZOLE 500 MG TABLET PO ×2 (05:10→13:59)
[2023-12-16] MEDS: FLUTICASONE/UMECLIDIN/VILANTER 100-62.5-25 MCG ELLIPTA 1 PUFF INHALATION (07:13)
[2023-12-16] MEDS: dilTIAZem HCL CD 240 MG CAP.24HR PO (09:11)
[2023-12-16] MEDS: PANTOPRAZOLE 40 MG TABLET PO ×2 (09:11→20:17)
[2023-12-16] MEDS: METOPROLOL TARTRATE 50 MG TAB PO ×2 (09:11→20:17)
[2023-12-16] MEDS: AMOXICILLIN/CLAVULANATE K 875-125 MG TAB 1 TABLET PO ×2 (09:11→20:17)
[2023-12-16] MEDS: FLUCONAZOLE 100 MG TABLET 200 MG PO (09:11)
[2023-12-16] MEDS: FUROSEMIDE 40 MG TABLET PO (09:16)
[2023-12-16] MEDS: ENOXAPARIN 30 MG/0.3 ML SYRINGE SUB-Q (09:16)
[2023-12-16 10:24] LABS: Mean Corpuscular HGB Conc 31.6 g/dl (32-36); Mean Corpuscular Hemoglobin 31.3 pg (26-34); Mean Platelet Volume 11.6 fl (7.4-10.4); Platelet Count Result 218 k/mm3 (150-375); Red Blood Count 3.84 M/mm3 (4.2-5.4); White Blood Count 15.3 K/mm3 (4.5-10.0)
--- NOTE | 2023-12-16 10:40 | PCPTNOTE ---
Patient refused PT. Patient voiced understanding of purpose and importance of participating in therapy and continues to refuse. Patient states I am done. I do not want any therapy. I want the lights out, door shut and nobody to bother me! I asked patient if she would like to attempt PT or OT later today and she states No! I do not want therapy anymore. I want to stay in bed.
[2023-12-16 10:41] LABS: Alanine Aminotransferase 35 U/L (6-35); Albumin Level 2.2 g/dL (3.5-5.1); Alkaline Phosphatase 182 U/L (38-126); Anion Gap 4 mmol/L (8-16); Aspartate Amino Transferase 72 U/L (14-36); Bilirubin,Total 0.5 mg/dL (0.2-1.3); Blood Urea Nitrogen 12 mg/dL (7-17); Calcium 7.6 mg/dL (8.4-10.2); Carbon Dioxide 28 mmol/L (22-30); Chloride 105 mmol/L (98-107); Estimated CRCL calculation 57 ml/min; Estimated Glomerular Filt Rate > 60; Glucose 181 mg/dL (65-110); Potassium 3.5 mmol/L (3.4-5.0); Sodium 137 mmol/L (137-145)
--- NOTE | 2023-12-16 11:15 | PCOTNOTE ---
Attempted to see Patient for OT treatment session. Patient refuses to participate, states I'm done, No more . Patient verbalized she understands the importance but she does not want therapy and wants to be left alone. Patient asked to be discharged from services she does not want therapy.
[2023-12-16] MEDS: SUCRALFATE SUSP 100 MG/ML 10 ML UDC 1000 MG PO ×2 (12:03→20:17)
--- NOTE | 2023-12-16 13:48 | PM.PNGS ---
Progress Note: A&P Assessment and Plan (1) Perforated duodenal ulcer: Code(s): K26.5 - Chronic or unspecified duodenal ulcer with perforation Status: Acute Assessment and Plan: Continue Protonix 40 mg b.i.d. and Carafate 1 g q.i.d. on discharge OK to discharge from surgical standpoint. Follow up in office in 2-3 weeks (2) Sepsis: Code(s): A41.9 - Sepsis, unspecified organism Status: Acute (3) Thrombocytopenia: Code(s): D69.6 - Thrombocytopenia, unspecified Status: Resolved Subjective Subjective Date/Time Seen: 12/16/23 13:48 Interval history: Tolerating regular diet. No fevers. No abdominal pain. Having diarrhea. Exam Const: General: alert; No acute distress Orientation/consciousness: patient oriented x3 GI: Inspection: non-distended and incision (intact with glue) GI Palp: Yes Soft to palpation, Yes Tenderness to palpation present (GI) (incisional) and No Guarding due to palpation present (GI) Auscultation: normal bowel sounds Objective Data Vital Signs Vital Signs: Vital Signs - 24 hr 12/15/23 13:58 12/15/23 14:05 12/15/23 15:49 Temperature 36.4 C L Pulse Rate 85 93 104 H Respiratory Rate 20 20 20 Blood Pressure 122/52 L Pulse Oximetry 95 Oxygen Delivery Oxygen Flow Rate 12/15/23 20:14 12/15/23 20:17 12/15/23 20:24 Temperature Pulse Rate 88 92 Respiratory Rate 20 20 Blood Pressure Pulse Oximetry 95 Oxygen Delivery Nasal Cannula Oxygen Flow Rate 1 12/15/23 20:00 12/15/23 16:00 12/15/23 20:00 Temperature Pulse Rate 98 105 H Respiratory Rate Blood Pressure Pulse Oximetry 99 Oxygen Delivery Nasal Cannula Oxygen Flow Rate 1 12/15/23 23:13 12/16/23 00:00 12/16/23 02:20 Temperature 36.1 C L Pulse Rate 100 101 H 84 Respiratory Rate 20 20 Blood Pressure 107/61 Pulse Oximetry 90 Oxygen Delivery Oxygen Flow Rate 12/16/23 02:30 12/16/23 04:00 12/16/23 07:15 Temperature Pulse Rate 89 105 H 91 Respiratory Rate 20 18 Blood Pressure Pulse Oximetry 93 Oxygen Delivery Nasal Cannula Oxygen Flow Rate 1 12/16/23 07:15 12/16/23 07:25 12/16/23 09:11 Temperature Pulse Rate 91 90 106 H Respiratory Rate 18 18 Blood Pressure Pulse Oximetry Oxygen Delivery Oxygen Flow Rate 12/16/23 08:00 12/16/23 13:15 12/16/23 13:25 Temperature Pulse Rate 94 91 Respiratory Rate 18 18 Blood Pressure Pulse Oximetry Oxygen Delivery Room Air Oxygen Flow Rate 12/16/23 08:00 12/16/23 12:00 Temperature Pulse Rate 130 H 110 H Respiratory Rate Blood Pressure Pulse Oximetry Oxygen Delivery Oxygen Flow Rate Intake/Output Intake/Output: Intake & Output 12/13/23 12/14/23 12/15/23 12/16/23 23:59 23:59 23:59 23:59 Intake Total 1620 2540 1180 715 Output Total 965 2354 2000 400 Balance 655 186 -820 315 Meds/Results Medications: Active Medications Generic Name Dose Route Start Last Admin Trade Name Freq PRN Reason Stop Dose Admin Hydrocodone Bitart/Acetaminophen 1 tab 12/15/23 14:24 Hydrocodone/Acetaminophen (*Crx) 5-325 Mg Tablet PO Q6H PRN Pain Rated 4-6 Albuterol/Ipratropium 3 ml 12/09/23 02:00 12/16/23 13:04 Ipratropium 0.5 Mg/Albuterol Sulfate 2.5 Mg Ampul.Neb 3 Ml INHALATION 3 ml Q6HRT LILLIAN Administration Amoxicillin/Clavulanate Potassium 1 tablet 12/13/23 21:00 12/16/23 09:11 Amoxicillin/Clavulanate K 875-125 Mg Tab PO 12/17/23 23:59 1 tablet Q12HR LILLIAN Administration Diltiazem HCl 240 mg 12/13/23 13:40 12/16/23 09:11 Diltiazem Hcl Cd 240 Mg Cap.24hr PO 240 mg QAM LILLIAN Administration Enoxaparin Sodium 30 mg 12/10/23 09:00 12/16/23 09:16 Enoxaparin 30 Mg/0.3 Ml Syringe SUB-Q 30 mg DAILY LILLIAN Administration Fluconazole 200 mg 12/14/23 09:00 12/16/23 09:11 Fluconazole 100 Mg Tablet PO 200 mg QAM LILLIAN Administration Fluticasone/Umeclidinium/
--- NOTE | 2023-12-16 14:29 | PM.DS ---
DS: Admitting Diagnosis Discharge Date 12/16/2023 Admitting Diagnosis Generalized Weakness/GERARDO DS: Discharge Diagnosis Discharge Diagnosis (1) Sepsis: Qualifiers: Sepsis acute organ dysfunction status: without acute organ dysfunction Sepsis type: sepsis due to unspecified organism Qualified Code(s): A41.9 - Sepsis, unspecified organism Code(s): A41.9 - Sepsis, unspecified organism Status: Acute (2) Perforated duodenal ulcer: Code(s): K26.5 - Chronic or unspecified duodenal ulcer with perforation Status: Acute (3) Right lower lobe pneumonia: Qualifiers: Pneumonia type: due to unspecified organism Qualified Code(s): J18.9 - Pneumonia, unspecified organism Code(s): J18.9 - Pneumonia, unspecified organism Status: Acute (4) Atrial fibrillation: Qualifiers: Atrial fibrillation type: paroxysmal Qualified Code(s): I48.0 - Paroxysmal atrial fibrillation Code(s): I48.91 - Unspecified atrial fibrillation Status: Acute (5) Weakness generalized: Code(s): R53.1 - Weakness Status: Acute (6) Leukocytosis: Qualifiers: Leukocytosis type: unspecified Qualified Code(s): D72.829 - Elevated white blood cell count, unspecified Code(s): D72.829 - Elevated white blood cell count, unspecified Status: Acute (7) Skin breakdown: Code(s): R23.8 - Other skin changes Status: Acute Plan -Continue with Protonix BID 40mg and Carafate 1g QID -Continue Regular diet as tolerated and supplements -PO ABX as directed -Encourage activity, no lifting >10 lbs and no strenuous abdominal exercises. -Monitor for GI bleed due to anticoagulation -Encourage oral hydration as tolerated -recommend follow up with order worker as scheduled O/P for AFIB -Encourage continued activity -incentive spirometer while awake DS: Summary Hospital Course Reason for hospitalization: Generalized weakness/GERARDO/Duodenal Ulcer perforation/Sepsis Hospital Course: Medical Records: Interval history: 12/11/23: (copy forward from chart) This patient was examined bedside today in interval assessment.? Patient continues to be tachycardic in atrial fibrillation rate rhythm.? Overall her night was without complications and was uneventful.? Patient resting comfortably upon my entry into room.? Currently in AFib with heart rate in the 120s.? Cardizem drip was initiated last evening.? This will be titrated up today.? Patient remains on antibiotics from her bowel perforation and right lower lobe and right middle lobe pneumonia including cefepime, Flagyl and a azithromycin.? The patient with NG tube present minimal drainage appearing canister.? Patient has YVROSE drain to surgical site that does appear to have a large amount of drainage that is serosanguineous in nature.? Surrounding skin from laparoscopic surgical sites are without any signs of acute infection.? Patient's vital signs other than heart rate have remained stable without any fever and she is no longer meeting sepsis criteria.? Patient awakens easily to verbal and tactile stimulation, complains that she does have some mild abdominal pain, no flatus and denies any chest pain or dyspnea. 12/12/23: On examination today patient is alert and oriented x3, lying in the bed. Family is at the bedside. Patient remains in A-fib with rate of 106-114, she is afebrile, currently on nasal cannula 1L NC. Currently on Cardizem infusion.? Patient denies any fever, chills, nausea, vomiting, diarrhea, chest pain, or shortness of breath. Patient endorses abdominal pain/incisional pain. She states she is passing gas this morning. Lap sites BASSAM with surgical glue. Patient? has been using ice for her abdominal pain and I advised patient against doing that. Encouraged her to take her po pain medication. Labs today revealed WBC 19.4, RBC 3.88, Plt 121, K+ 3.0, Chloride 114. Blood cultures showing no growth to date on preliminary
[2023-12-16 15:56] LABS: SARS-CoV-2 RNA PCR Negative (Negative)
--- NOTE | 2023-12-16 19:20 | PC.NURSE ---
report given to Pat PAYNE @[phone]
--- NOTE | 2023-12-16 22:43 | PC.NURSE ---
Pt was discharged to [facility] per EMS at 2100. Pt's IV was removed and tele monitor was removed. Pt was assisted to stretcher by paramedics with no difficulties noted.
== END 2023-12-16 21:00 | DRG 853 ==
LOC: ANHED 21:43 → ANH3MED 23:02 → ANHIMU 12-09 20:14 → ANH3MEDSUR 12-16 12:46 → ANHIMU 12-19 09:30
PROVIDERS: Nurse Practitioner Acute Care; Nurse Practitioner Adult Health; Surgery; Admitting Provider Internal Medicine; Emergency Provider Emergency Medicine; PCP Family Medicine Sports Medicine; Visit Provider Nurse Practitioner Family
PROC: 0DQ64ZZ Repair Stomach, Percutaneous Endoscopic Approach (ICD-10-PCS; CPT 43659; principal; 2023-12-09 17:30)
DX: A41.9 Sepsis, unspecified organism (principal); J18.9 Pneumonia, unspecified organism; K26.1 Acute duodenal ulcer with perforation; K65.1 Peritoneal abscess; N17.9 Acute kidney failure, unspecified; I48.20 Chronic atrial fibrillation, unspecified; I50.9 Heart failure, unspecified; N18.9 Chronic kidney disease, unspecified; D69.6 Thrombocytopenia, unspecified; Z20.822 Contact with and (suspected) exposure to COVID-19; Z11.52 Encounter for screening for COVID-19; Z79.82 Long term (current) use of aspirin
CPT/HCPCS: 36415; 70450; 71045; 74176; 74240; 76775; 80048; 80053; 81001; 83605; 83735; 83880; 84145; 84484; 85025; 85027; 85055; 85610; 85730; 87040; 87449; 87635; 87637; 87899; 93005; 94640; 96365; 96367; 96375; 97116; 97161; 97165; 97166; 97530; 97535; 99285; A9270; C9113; G0378; J0330; J0456; J0692; J0696; J1100; J1650; J1836; J1940; J2248; J2270; J2371; J2405; J2704; J3010; J3480; J7030; J7040; J7120